=== PATIENT | male | born 1935 | race Caucasian/White ===

== ENCOUNTER 2017-12-12 11:25 | Emergency (ER) | payer MEDICARE, SELFPAY ==
[2017-12-12 11:26] VITALS: BP 112/77; PULSE 125; RESP 18; TEMP 36.6; O2SAT 98; BMI 27.2
[2017-12-12 11:56] LABS: Absolute Lymphocyte Count 0.62 X10^3/ul (0.83-4.51); Absolute Neutrophil Count 15.8 X10^3/uL (2.0-7.7); Basophil# 0.01 X10^3/uL; Basophil% 0.1 % (0-1); Hematocrit 44.1 % (40-54); Hemoglobin 15.9 g/dl (13.0-16.5); Lymphocyte # 0.62 X10^3/ul (4.0); Lymphocyte % 3.6 % (19-41); Mean Corp Hgb Conc 36.1 g/gl (32-36); Mean Corpuscular Volume 88.7 fL (80-94); Mean Platelet Vol. 9.7 fl (6.2-12.0); Monocyte# 0.99 X10^3/uL; Monocyte% 5.7 % (0-10); Neutrophil # 15.79 X10^3/uL (2.7-7.7); Neutrophil % 90.3 % (47-70); Platelet Count 238 K/mm3 (150-450); RBC Distribution Width CV 13.7 % (11.6-14.6); RBC Distribution Width SD 44.1 fl (35.1-43.9); Red Blood Count 4.97 M/mm3 (4.6-6.2); White Blood Count 17.5 K/mm3 (4.4-11.0)
[2017-12-12] MEDS: 0.9% Normal Saline 1,000 ML 1000 ML IV (11:56)
[2017-12-12 11:57] LABS: POSITIVE COUNT NO; POSITIVE DIFFERENTIAL NO; POSITIVE MORPHOLOGY NO
[2017-12-12] MEDS: Ondansetron 4 MG/2 ML Vial IV (11:57)
[2017-12-12 12:07] LABS: Anion Gap 14 (5-15); BUN 23 mg/dL (7-18); Calcium,Total 10.2 mg/dL (8.5-10.1); Chloride 89 mmol/L (98-107); Creatinine, Serum 1.35 mg/dL (0.70-1.30); EST Glomerular Filtration Rate 54 mL/min (>60); Est Glom Filt Rate - Afr Amer 65 mL/min (>60); Estimated Creatinine Clearance 42.81 ml/min; Glucose 301 mg/dL (74-106); Potassium 3.9 mmol/L (3.5-5.1); Sodium Level 130 mmol/L (136-145)
[2017-12-12] MEDS: 0.9% Normal Saline 1,000 ML 999 ML IV (13:24)
--- NOTE | 2017-12-12 13:27 | NURSING ---
NO LW OR POA
[2017-12-12 15:18] LABS: Anion Gap 10 (5-15); BUN 22 mg/dL (7-18); BUN/Creat Ratio 19.6 RATIO (10-20); Calcium,Total 9.5 mg/dL (8.5-10.1); Chloride 95 mmol/L (98-107); Creatinine, Serum 1.12 mg/dL (0.70-1.30); EST Glomerular Filtration Rate 67 mL/min (>60); Est Glom Filt Rate - Afr Amer 80 mL/min (>60); Glucose 212 mg/dL (74-106); Potassium 3.9 mmol/L (3.5-5.1); Sodium Level 134 mmol/L (136-145)
--- NOTE | 2017-12-12 15:39 | ED.VISSUMM ---
- ER Visit Summary Date of Service: 12/12/17 Chief Complaint: Vomiting History of Present Illness: The patient is a 82 M who last evening developed lower abdominal cramping and vomited 11 times during the night. He woke this morning with improvement in his symptoms. He and family are concerned about dehydration. Other at home ate the same meal as patient did not get sick. He has not had fever. He denies any prior abdominal surgeries. Physical Examination: Vital signs are significant for heart rate of 125, otherwise unremarkable. Head neck examination is unremarkable. Heart is tachycardic and regular. Lung sounds are clear. Abdomen is soft and nontender. Hypoactive bowel sounds are noted. He allows deep palpation with no pain. Test Results: CBC reveals a white count of 17.5 with 90% neutrophils. Chemistry studies reveal a sodium of 130 and a chloride of 89. His glucose is 301, BUN 23, creatinine 1.35. Emergency Department Course and Treatment: Patient was given Zofran and 1 L of normal saline. On repeat evaluation heart rate is 112. He feels improved. He is given an additional liter of fluid and following this a repeat BMP is drawn. His sodium is 134 and creatinine 1.12. Blood sugar on second BMP is 212. Treatment Plan: Patient is discharged home with a prescription for Zofran if needed. Disposition: Discharge Impression: Vomiting, improved This note was generated with [employer] dictation software. It may contain incorrect words, spelling, and punctuation that were not noted in review of the chart prior to signing ED Disposition - Plan for ED Patient: Disposition: Home or Assisted Living Chief Complaint: Nausea/Vomiting Instructions: ED Nausea Vomiting Prescriptions: Ondansetron [Zofran Odt] 4 mg PO Q8H PRN PRN #10 tablet PRN Reason: Nausea Referrals: Charles Cutler MD [Primary Care Provider] - 3-5 Days if not improving
--- NOTE | 2017-12-12 15:48 | ED.DEP ---
ED Disposition - Plan for ED Patient: Disposition: Home or Assisted Living Chief Complaint: Nausea/Vomiting Instructions: ED Nausea Vomiting Prescriptions: Ondansetron [Zofran Odt] 4 mg PO Q8H PRN PRN #10 tablet PRN Reason: Nausea Referrals: Charles Cutler MD [Primary Care Provider] - 3-5 Days if not improving
== END 2017-12-12 16:07 | disposition home or self-care (01) ==
PROVIDERS: Emergency Provider Emergency Medicine; Family Provider Internal Medicine; PCP Internal Medicine
DX: R11.2 Nausea with vomiting, unspecified (principal); R10.9 Unspecified abdominal pain; E11.9 Type 2 diabetes mellitus without complications; I10 Essential (primary) hypertension; Z79.84 Long term (current) use of oral hypoglycemic drugs; Z79.899 Other long term (current) drug therapy
CPT/HCPCS: 80048; 85025; 96361; 96374; 99283; J7030; A4216; J2405

== ENCOUNTER 2017-12-15 17:44 | Inpatient (IN) | payer MEDICARE, SELFPAY ==
[2017-12-15 17:45] VITALS: BP 125/75; PULSE 108; RESP 16; TEMP 37.3; O2SAT 94; BMI 26.6
--- NOTE | 2017-12-15 17:56 | CT_ITS ---
STUDY: CT ABDOMEN AND PELVIS WITH CONTRAST REASON FOR EXAM: Male, 82 years old. Right lower quadrant pain, constipation, vomiting and nausea. History of diabetes. RADIATION DOSAGE (If Supplied By Facility): CTDIvol = ( 15.19 ) mGy, DLP = ( 1388.55 ) mGycm TECHNIQUE: Transaxial images were obtained from the dome of the diaphragm to the symphysis pubis with oral contrast. 100 ml of Isovue 300 contrast was administered. Sagittal and coronal images were reconstructed. Individualized dose optimization techniques were used for this CT. COMPARISON: None. FINDINGS: Dependent pleural-based consolidation or atelectasis and posterior right lower lobe calcification. Minimal posterior atelectasis or chronic change of the left lung and calcified granuloma. Normal liver. Large volume gallbladder with multiple calcifications present. There appears to be wall thickening and pericholecystic edema. There are multiple benign calcified granulomata of the spleen. Normal pancreas. Normal bilateral adrenal glands. 4.3 cm cyst of the right kidney. Otherwise normal right kidney without hydronephrosis or stones. 1 shallow cortical scar in the upper pole of the left kidney. Otherwise normal left kidney without hydronephrosis or stones. Normal visualized stomach. Calcified paraesophageal lymph node. Normal small bowel. Diverticulosis of the colon without evidence of acute diverticulitis. There appears to be some generalized thickening of the cephalad wall of the hepatic flexure of the colon juxtapose the gallbladder inflammation. The appendix is visualized and appears normal. There is diffuse atherosclerotic calcification of the abdominal aorta, without a demonstrated aneurysm. Normal inferior vena cava. Normal retroperitoneum. Normal urinary bladder. Minimal fatty umbilical hernia. Small fatty left inguinal hernia. There are diffuse degenerative changes of the visualized lumbar spine. Old mild compression deformities of T12 and L1. CT/Abdomen/Pelvis WITH Contrast IMPRESSION: Cholelithiasis and probably acute cholecystitis. Large volume thick walled gallbladder with pericholecystic edema and numerous calcified stones. Nondistended intrahepatic and common bile duct. Unremarkable pancreas. Thickening of the cephalad wall of the hepatic flexure of the colon juxtapose the gallbladder inflammation and most likely secondary to the gallbladder inflammation with no other acute bowel related findings. Diverticulosis without evidence of acute diverticulitis. A normal appendix is identified. Stigmata of old granulomatous disease. Atherosclerotic changes of the thoracic aorta. Minimal fatty umbilical hernia. Small fatty left inguinal hernia. Posterior atelectatic versus chronic change, right greater than left. Electronically Signed: Marsha Dueñas MD at 20:11 EDT , Service support ,
--- NOTE | 2017-12-15 18:00 | ED.DCSUM_ITS ---
- ER Visit Summary Date of Service: 12/15/17 Chief Complaint: Abdominal pain History of Present Illness: The patient is a 82 M presents with son for continued abdominal pain for 3 days. Was seen 3 days in the ED for abdominal pain and vomiting. His abdominal pain subsided at that time. Vomiting has subsided. As you Zofran only in the mornings yesterday the day before. This morning states has severe tremors and chills. Son states patient's teeth was chattering. Denies cough. Denies urinary symptoms. However states he still feels lower quadrant abdominal pain, initially was left and right, however states left-sided subsided now pain in the right lower quadrant. Worsened with deep breaths. No chest pains. No bowel movement since Wednesday. No abdominal surgeries in the past. Currently denies any nausea symptoms. He has been tolerating oral fluids. Physical Examination: General: Alert and oriented ?3, no acute distress HEENT: Normocephalic, atraumatic. Moist mucosa membranes Neck: supple, nontender. Cardiovascular: Regular tachycardic rate and rhythm, no murmurs Respiratory: Normal breath sounds, symmetric, no distress Abdomen: Soft, mild right lower quadrant tenderness without guarding or rebound , nondistended. Negative Alvarado's. Extremities: Nontender, no edema, pulses intact ?4 Neuro: no focal neurological deficits. Test Results: WBC 7.5. Hemoglobin 13. Creatinine 1.11. ALP 117, ALT 17, AST 13. Total bili 1.1. Sodium 127. Urine negative. CT abdomen pelvis: Cholelithiasis, concerns for cholecystitis with thickened gallbladder wall and edema. Normal appendix. Emergency Department Course and Treatment: Patient presents with increasing chills, and mild right lower quadrant pain on examination. Patient afebrile. White count normal. Appendix normal. However CT did note abnormal gallbladder concerns for cholecystitis. He is nontender the right upper quadrant. Patient was here 3 days ago with vomiting and lower abdominal pain. Labs reviewed from then he had a white count of that time of 17 and a left shift. No reported right upper quadrant pain. However he is diabetic therefore vomiting could have been secondary to gallbladder disease at that time. White count currently normal. However with abnormalities on images, I did speak with covering hospitalist, Dr. Schulz, discuss findings, she agrees with his diabetes, symptomatic 3 days ago could have been from his gallbladder. These are findings today on CT. With a sodium decreasing to 127, she did request admission to medicine for an official ultrasound in the morning and correction of his sodium. I spoke with hospitalist, Dr. Dey who agrees to admit for inpatient management. Urine sodium and creatinine was sent per her request. Constipation will be managed during inpatient stay. Treatment Plan: [] Disposition: Admission Impression: 1. Abdominal pain 2. Hyponatremia 3. Abnormal gallbladder 4. Constipation This note was generated with [employer] dictation software. It may contain incorrect words, spelling, and punctuation that were not noted in review of the chart prior to signing ED Disposition - Plan for ED Patient: Disposition: Acute Care [facility] Chief Complaint: Nausea/Vomiting Diagnosis: Abdominal pain, Abnormal CT scan, gallbladder, Hyponatremia, Constipation Referrals: Charles Cutler MD [Primary Care Provider] -
[2017-12-15] MEDS: 0.9% Normal Saline 1,000 ML 125 ML IV (18:09)
[2017-12-15 18:46] LABS: ALB/GLOB Ratio 0.6 RATIO (0.9-2.4); AST(SGOT) 13 U/L (15-37); Absolute Lymphocyte Count 0.18 X10^3/ul (0.83-4.51); Absolute Neutrophil Count 6.8 X10^3/uL (2.0-7.7); Alanine Aminotransfer ALT/SGPT 17 U/L (16-61); Albumin, Serum 2.8 g/dL (3.2-5.0); Alkaline Phosphatase 117 U/L (45-117); Anion Gap 12 (5-15); BUN 25 mg/dL (7-18); BUN/Creat Ratio 22.5 RATIO (10-20); Chloride 90 mmol/L (98-107); Creatinine, Serum 1.11 mg/dL (0.70-1.30); Differential Indicated SCAN CRITERIA MET; EST Glomerular Filtration Rate 67 mL/min (>60); Eosinophil# 0.02 X10^3/uL; Eosinophils% 0.3 % (0-5); Est Glom Filt Rate - Afr Amer 81 mL/min (>60); Estimated Creatinine Clearance 50.42 ml/min; Globulin 4.4 g/dL (2.2-4.2); Glucose 223 mg/dL (74-106); Hematocrit 37.6 % (40-54); Lymphocyte # 0.18 X10^3/ul (4.0); Lymphocyte % 2.4 % (19-41); Mean Corp Hgb Conc 34.6 g/gl (32-36); Mean Corpuscular Volume 89.7 fL (80-94); Mean Platelet Vol. 9.9 fl (6.2-12.0); Monocyte# 0.43 X10^3/uL; Monocyte% 5.8 % (0-10); Neutrophil # 6.81 X10^3/uL (2.7-7.7); Neutrophil % 91.4 % (47-70); POSITIVE COUNT NO; POSITIVE DIFFERENTIAL YES; POSITIVE MORPHOLOGY NO; Platelet Count 180 K/mm3 (150-450); Potassium 4.3 mmol/L (3.5-5.1); Protein, Total 7.2 g/dL (6.4-8.2); RBC Distribution Width CV 13.6 % (11.6-14.6); RBC Distribution Width SD 44.9 fl (35.1-43.9); Red Blood Count 4.19 M/mm3 (4.6-6.2); Sodium Level 127 mmol/L (136-145); White Blood Count 7.5 K/mm3 (4.4-11.0)
[2017-12-15 18:51] LABS: Bacteria 0 SEEN /hpf (None Seen); Mucous, Urine 0 SEEN /hpf (<or=2+); Squamous Epithelial Cells - UA 0 SEEN /hpf (0-5); White Blood Cells 0 SEEN /hpf (0-5)
[2017-12-15 18:54] LABS: International Normalized Ratio 1.1; Prothrombin Time (Protime)PT. 13.7 SECONDS (11.7-14.9)
[2017-12-15 18:55] LABS: Partial Thromboplast Time 33.7 Seconds (24.1-36.2)
[2017-12-15 19:16] LABS: Color, Urine Yellow (Yellow); Glucose, Dipstick 50 mg/dl (Normal); Urine Clarity Clear (Clear)
[2017-12-15 19:16] LABS: Differential Comment SCANNED; Platelet Estimate ADEQUATE (ADEQ)
[2017-12-15 19:17] LABS: Ketone-Dipstick Negative (Negative); Leukocyte Esterase-Dipstick Negative /ul (Negative); Nitrite-Dipstick Negative (Negative); Occult Blood-Urine 25 /ul (Negative); Protein-Dipstick 30 mg/dl (Negative); Urine Bilirubin Dipstick Negative (Negative); Urine Urobilinogen Normal (Normal)
[2017-12-15 19:18] LABS: Red Blood Cells-Urine 0-5 SEEN /hpf (0-5)
[2017-12-15 20:47] VITALS: BP 108/71; PULSE 85; RESP 17; TEMP 37; O2SAT 94
[2017-12-15 20:53] VITALS: BP 108/72; PULSE 85; RESP 18; TEMP 37; O2SAT 93
--- NOTE | 2017-12-15 20:53 | NURSING ---
GAVE PT A COPY OF [employer] DISCONT. SHEET AND WILL ALSO BE WITH ADMISSION PAPERWORK
[2017-12-15 20:54] LABS: Lipase 204 U/L (73-393)
[2017-12-15 21:53] LABS: Urine Sodium 12 mmol/L (Not Establ.)
[2017-12-15 22:51] VITALS: BMI 26.6
--- NOTE | 2017-12-15 22:51 | HP.PCM_ITS ---
Problem List (1) Cholecystitis, acute with cholelithiasis Status: Acute (2) Abdominal pain Status: Acute Qualifiers: Abdominal location: right upper quadrant Qualified Code(s): R10.11 - Right upper quadrant pain (3) Abnormal CT scan, gallbladder Status: Acute (4) Constipation Status: Chronic (5) Hyponatremia Status: Acute (6) Contact with powered lawnmower as cause of accidental injury Status: Resolved (7) Fracture of second toe, right, closed Status: Resolved (8) Open fracture of right great toe Status: Resolved (9) Subungual hematoma of toe of right foot Status: Resolved Qualifiers: (10) Traumatic right foot injury Status: Resolved (11) Diabetes mellitus type 2 in nonobese Status: Chronic (12) Dehydration Status: Acute (13) Diverticulosis Status: Chronic (14) Colon polyps Status: Chronic History of Present Illness Date of Admission: 12/15/17 Chief Complaint: shaking chills, RUQ abdominal pain, recent severe N/V The patient is a 82 year old M with a PMH of HTN, gout, hypothyroidism, colon polyps, diverticulosis and DM II who presented to the ED at [facility] on 12/15/17 c/o shaking chills, RUQ abdominal pain and poor appetite for the past 5 days. He was also seen in the ED on 12/12/2017 complaining of nausea and vomiting. Prior to the nausea and vomiting he ate pizza and fried zucchini.....he tells me this has not bothered him in the past. He had 12 episodes of N/V and then this resolved but his appetite remained poor and he had RUQ abdominal pain that increased with deep breathing. In the past 4-5 days he has only had a few bowls of soup. He has not had diarrhea. He was treated as possible gastroenteritis initially and sent home with a RX for Zofran ODT. Lalo he tells me that he had RUQ abdominal pain earlier today but it has gotten better. He also had chills and shook him all over and he could not control the shaking today. He denies taking any pain relievers but he does have Tramadol at home. Vital signs at presentation to the emergency room [facility] were temperature 99.1, heart rate 108, blood pressure 125/75, respiratory rate 16 and he was 93-94% saturated on room air. WBC count on 12/12 was 17.5 but today is 7.5. He has 91% neutrophils tonight. Sodium is low at 127 and chloride is 90. THe BUN is 25 with a creatinine of 1.11. A CT scan of the abdomen and pelvis showed dependent pleural-based consolidation or atelectasis in the right lower lobe. There was a large volume gallbladder with multiple calcifications present. The wall appeared to be thickened and there was pericholecystic fluid. The pancreas appeared normal. He is being admitted to the hospital with Acute cholecystitis and has been started on zosyn. BC's will be drawn. Dr. Schulz has been consulted and will add him to the surgical schedule for tomorrow. Past Medical History Past Medical History (Chronic Problems): Chronic Problems Constipation (Chronic) Diverticulosis (Chronic) Colon polyps (Chronic) Diabetes mellitus type 2 in nonobese (Chronic) Allergies cefaclor [From Ceclor] Allergy (Verified 12/15/17 17:48) Hives cephalexin monohydrate [From Keflex] Allergy (Verified 12/15/17 17:48) Hives codeine Allergy (Verified 12/15/17 17:48) Hives Home Medications: Ambulatory Orders Medication Instructions Recorded Allopurinol [Zyloprim] 300 mg PO DAILY 08/27/14 Levothyroxine [Synthroid] 100 mcg PO DAILY 08/27/14 Verapamil HCl [Verapamil ER] 240 mg PO DAILY 08/27/14 Cinnamon Bark [Cinnamon] 1,000 mg PO BID 03/15/17 Lisinopril [Zestril] 5 mg PO DAILY 03/15/17 Metformin HCl 1,000 mg PO BID 03/15/17 Multivit-Min/FA/Lycopen/Lutein 1 each PO DAILY 03/15/17 [Centrum Silver Men Tablet] Amoxicillin/Potassium Clav 1 each PO BID #14 tablet 03/17/17 [Augmentin 875-125 Tablet] traMADol [Ultram] 50 mg PO Q8H PRN PRN #10 tablet 03/17/17 Ondansetron [Zofran Odt] 4 mg PO Q8H PRN PRN #10 tablet 12/12/17 Surgical History: - - Surgery for rectal fistula, 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 Denies: Night Sweats Eyes: Denies: Vision Change HEENT: Denies: Head Aches, Sinus Congestion, Sinus Drainage Cardiovascular: Denies: Chest Pain, Edema, Light Headedness, Palpitations Respiratory: Denies: Cough, Shortness of Breath Gastrointestinal: Reports: Abdominal Pain, Constipation - chronic. Denies: Diarrhea Genitourinary: Denies: Dysuria Musculoskeletal: Denies: Joint Pain, Joint Tenderness Skin: Denies: Rash, Wounds Neurological: Denies: Numbness, Tingling, Focal weakness Psychiatric: Denies: Anxiety, Depression, Homicidal Ideations, Suicidal Ideations Endocrine: Denies: Change in Body Habitus Hematologic/ Lymphatic: Denies: Hx of blood clot VTE Information - Inpt Only VTE Present on Admission: No VTE Mechan Device Prophylaxis: SCD's, Knee High JULIETTE Hose VTE Pharm Prophylaxis ordered?: Yes Patient Problems: Active and Suspected Problems Abdominal pain (Acute) Abnormal CT scan, gallbladder (Acute) Hyponatremia (Acute) Cholecystitis, acute with cholelithiasis (Acute) Dehydration (Acute) - Physical Exam General: Alert, Oriented x3, Cooperative, No apparent distress, Well developed, Well nourished HEENT: Atraumatic, PERRLA, EOMI, Normocephalic Oral: No Gingival or Mucosal Lesions/ Ulcerations, Dry Mucosa Neck: Supple, No JVD, Negative Carotid Bruits, No Nodes, Trachea Midline Lungs: Clear to auscultation, Normal air movement Cardiovascular: Regular rate, Regular Rhythm, Normal S1, Normal S2, Murmur, No rub noted, No Gallop Abdomen: Soft, Non Tender, Non-Distended, Hypoactive Bowel Sounds Extremities: No clubbing, No cyanosis, No edema, No Calf Tenderness, Peripheral Pulses Normal Skin: No rashes, No breakdown Musculoskeletal: No Muscle Wasting Neurological: Cranial nerves II-XII grossly intact, Neuro grossly intact Psych/Mental Status: Normal Affect, Appropriate Vital Signs Temp Pulse Resp BP Pulse Ox 98.6 F 85 18 108/72 93 12/15/17 20:53 12/15/17 20:53 12/15/17 20:53 12/15/17 20:53 12/15/17 20:53 Oxygen Delivery Method Room Air Weight: 180 lb Body Mass Index (BMI) 26.6 Laboratory Tests Past 24 Hrs 12/15/17 12/15/17 12/15/17 18:00 18:00 18:00 WBC 7.5 RBC 4.19 L Hgb 13.0 Hct 37.6 L MCV 89.7 MCH 31.0 MCHC 34.6 RDW 13.6 RDW Differential 44.9 H Plt Count 180 MPV 9.9 Immature Gran % (Auto) 0.100 Neut % (Auto) 91.4 H Lymph % (Auto) 2.4 L [place] % (Auto) 5.8 Eos % (Auto) 0.3 Baso % (Auto) 0.0 Absolute Neuts (auto) 6.8 Absolute Lymphs (auto) 0.18 L Total Counted Not Reportable Differential Comment SCANNED Platelet Estimate ADEQUATE PT 13.7 INR 1.1 APTT 33.7 Sodium 127 L Potassium 4.3 Chloride 90 L Carbon Dioxide 25.0 Anion Gap 12 BUN 25 H Creatinine 1.11 Estim Creat Clear Calc 50.42 Est GFR (MDRD) Af Amer 81 Est GFR (MDRD) Non-Af 67 BUN/Creatinine Ratio 22.5 H Glucose 223 H Calcium 9.0 Total Bilirubin 1.10 H AST 13 L ALT 17 Alkaline Phosphatase 117 Total Protein 7.2 Albumin 2.8 L Globulin 4.4 H Albumin/Globulin Ratio 0.6 L Lipase Urine Color Urine Clarity Urine pH Ur Specific [place] Urine Protein Urine Glucose (UA) Urine Ketones Urine Occult Blood Urine Nitrite Urine Bilirubin Urine Urobilinogen Ur Leukocyte Esterase Urine RBC Urine WBC Ur Squamous Epith Cells Urine Bacteria Urine Mucus Ur Random Sodium Urine Creatinine 12/15/17 12/15/17 12/15/17 18:00 18:45 18:45 WBC RBC Hgb Hct MCV MCH MCHC RDW RDW Differential Plt Count MPV Immature Gran % (Auto) Neut % (Auto) Lymph % (Auto) [place] % (Auto) Eos % (Auto) Baso % (Auto) Absolute Neuts (auto) Absolute Lymphs (auto) Total Counted Differential Comment Platelet Estimate PT INR APTT Sodium Potassium Chloride Carbon Dioxide Anion Gap BUN Creatinine Estim Creat Clear Calc Est GFR (MDRD) Af Amer Est GFR (MDRD) Non-Af BUN/Creatinine Ratio Glucose Calcium Total Bilirubin AST ALT Alkaline Phosphatase Total Protein Albumin Globulin Albumin/Globulin Ratio Lipase 204 Urine Color Yellow Urine Clarity Clear Urine pH 6.0 Ur Specific [place] 1.010 Urine Protein 30 H Urine Glucose (UA) 50 H Urine Ketones Negative Urine Occult Blood 25 H Urine Nitrite Negative Urine Bilirubin Negative Urine Urobilinogen Normal Ur Leukocyte Esterase Negative Urine RBC 0-5 SEEN Urine WBC 0 SEEN Ur Squamous Epith Cells 0 SEEN Urine Bacteria 0 SEEN Urine Mucus 0 SEEN Ur Random Sodium Urine Creatinine 112.00 12/15/17 18:45 WBC RBC Hgb Hct MCV MCH MCHC RDW RDW Differential Plt Count MPV Immature Gran % (Auto) Neut % (Auto) Lymph % (Auto) [place] % (Auto) Eos % (Auto) Baso % (Auto) Absolute Neuts (auto) Absolute Lymphs (auto) Total Counted Differential Comment Platelet Estimate PT INR APTT Sodium Potassium Chloride Carbon Dioxide Anion Gap BUN Creatinine Estim Creat Clear Calc Est GFR (MDRD) Af Amer Est GFR (MDRD) Non-Af BUN/Creatinine Ratio Glucose Calcium Total Bilirubin AST ALT Alkaline Phosphatase Total Protein Albumin Globulin Albumin/Globulin Ratio Lipase Urine Color Urine Clarity Urine pH Ur Specific [place] Urine Protein Urine Glucose (UA) Urine Ketones Urine Occult Blood Urine Nitrite Urine Bilirubin Urine Urobilinogen Ur Leukocyte Esterase Urine RBC Urine WBC Ur Squamous Epith Cells Urine Bacteria Urine Mucus Ur Random Sodium 12 Urine Creatinine Assessment/Plan All Active Problems Abdominal pain (Acute) Abnormal CT scan, gallbladder (Acute) Hyponatremia (Acute) Cholecystitis, acute with cholelithiasis (Acute) Dehydration (Acute) Contact with powered lawnmower as cause of accidental injury (Resolved) Fracture of second toe, right, closed (Resolved) Open fracture of right great toe (Resolved) Subungual hematoma of toe of right foot (Resolved) Traumatic right foot injury (Resolved) Impressions 1. Acute cholecystitis 2. Cholelithiasis with thickened gallbladder wall and pericholecystic fluid 3. Hypertension 4. Hypothyroidism 5. Gout/hyperuricemia 6. History of colon polyps 7. Diverticulosis 8. probable atelectasis RLL 9. Dehydration with prerenal azotemia and hyponatremia-fractional excretion of sodium is 0.09%. 10. DM II Admit to the hospital Zosyn 3.375 GM IV q 8H - allergic to Keflex but, can take PCN NPO for surgery 1 dose Lovenox tonight and then DC SCD's and JULIETTE hose Hydrate with NS Recheck labs in the AM Check a HGBA1C Accucheks with SSI coverage Dr. Schulz on consult Pain medication ordered. IS Code Visit Inpatient E&M: 17638 Init Hosp L2
[2017-12-15 23:14] VITALS: BP 107/70; PULSE 81; RESP 16; TEMP 36.9; O2SAT 95
--- NOTE | 2017-12-15 23:16 | EKG12_ITS ---
Test Reason : PRE OP Blood Pressure : / mmHG Vent. Rate : 077 BPM Atrial Rate : 077 BPM P-R Int : 192 ms QRS Dur : 096 ms QT Int : 368 ms P-R-T Axes : 034 -16 020 degrees QTc Int : 416 ms Normal sinus rhythm Normal ECG Confirmed by MIKI POWERS, JOSE ([id number]), news copy editor LINDA WOOTEN ([id number]) on 12/23/2017 2:19:34 PM Referred By: NATALIYA Confirmed By:JOSE LIVINGSTON MD
[2017-12-15] MEDS: 0.9% Normal Saline 1,000 ML 999 ML IV (23:22)
[2017-12-16] VITALS (13 sets, daily range): BP systolic 103–142; BP diastolic 65–95; PULSE 78–83; RESP 16–20; TEMP 36.3–37.3; O2SAT 92–98; BMI 26.6
[2017-12-16] LABS: Bedside Glucose 251 mg/dL (70-110)
[2017-12-16 00:03] LABS: Magnesium 1.5 mg/dL (1.6-2.6)
[2017-12-16] MEDS: Insulin Lispro 100 UNIT/ML INSULN.PEN SC ×5 (00:11→21:54)
[2017-12-16] MEDS: 0.9% Normal Saline 1,000 ML 125 ML IV ×4 (00:12→16:40)
[2017-12-16 00:15] LABS: Hemoglobin A1c 6.6 % (4.2-6.3)
[2017-12-16] MEDS: Piperacil/Tazobactam 3.375 GM/50 ML ML IV ×3 (05:33→21:53)
[2017-12-16] MEDS: Magnesium Hydroxide 30 ML UDC PO (05:40)
[2017-12-16] MEDS: Levothyroxine 100 MCG Tablet PO (05:41)
[2017-12-16 06:39] LABS: Absolute Lymphocyte Count 0.32 X10^3/ul (0.83-4.51); Absolute Neutrophil Count 6.4 X10^3/uL (2.0-7.7); Eosinophil# 0.04 X10^3/uL; Eosinophils% 0.6 % (0-5); Hematocrit 35.2 % (40-54); Hemoglobin 12.2 g/dl (13.0-16.5); Lymphocyte # 0.32 X10^3/ul (4.0); Lymphocyte % 4.6 % (19-41); Mean Corp Hgb Conc 34.7 g/gl (32-36); Mean Corpuscular Hgb 31.3 pg (27.0-32.0); Mean Corpuscular Volume 90.3 fL (80-94); Monocyte# 0.23 X10^3/uL; Monocyte% 3.3 % (0-10); Neutrophil # 6.35 X10^3/uL (2.7-7.7); Neutrophil % 91.5 % (47-70); Platelet Count 161 K/mm3 (150-450); RBC Distribution Width CV 13.8 % (11.6-14.6); RBC Distribution Width SD 45.3 fl (35.1-43.9); White Blood Count 6.9 K/mm3 (4.4-11.0)
[2017-12-16 06:40] LABS: Differential Indicated SCAN CRITERIA MET; POSITIVE COUNT NO; POSITIVE DIFFERENTIAL YES; POSITIVE MORPHOLOGY NO
--- NOTE | 2017-12-16 06:45 | PCM.CONS.B ---
- Consult Date of Consult: 12/16/17 - Reason for Consult cC: abdominal pain HPI: Rosie Gaona is a 82 year old pleasant WM who presents with abdominal pain, weakness, poor appetite for several days. Found to have acute cholecystitis. He had presented about 3 days ago, had right lower quadrant abdominal pain, had WBC of 17k. Had normal WBC in ED yesterday but has left shift of differential. Also complaint of subjective temperature elevations and chills. Placed on IV antibiotics upon admission. Has elevated bilirubin, but normal AST/ALT, alkphos. Denies obstructive biliary type signs - jaundice, icterus, etc. US reveals multiple gallstones with thickened wall and pericholecystic fluid. 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) 01/18/2015 PAST SURGICAL HISTORY CAPSULE ENDO SMALL BOWEL W EGD 08/29/2014 COLONOSCOP W/ OR W/O [facility] SPEC 07/31/10 COLONOSCOP W/ OR W/O [facility] SPEC 08/29/2014 COLONOSCOP W/ OR W/O [facility] SPEC 01/19/2015 COLONOSCOPY 08/06/2015 COLONOSCOPY 01/23/2016 EGD 08/06/2015 EGD W/O OR W/BRUSH/WASH 08/29/2014 EGD W/O OR W/BRUSH/WASH 01/19/2015 PAST SURGICAL HISTORY OF 03/16/1974 anal fissure repair 11/17/1985 bilateral Taylor-Akira,transantral ethmoidectomies and sphenoidectomies and 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 Caregiver for with late effects of CVA. Independent of ADLs. Drives. Ambulatory. ALLERGIES Ceclor [Cefaclor] Hives Codeine Swelling Keflex [Cephalexin] Hives CURRENT MEDICATIONS verapamil ER (VERELAN) 240 mg 24 hr capsule TAKE 1 CAPSULE BY MOUTH ONCE DAILY. levothyroxine (SYNTHROID) 100 mcg tablet Take 1 tablet by mouth daily before breakfast. allopurinol (ZYLOPRIM) 300 mg tablet Take 1 tablet by mouth once daily. metFORMIN (GLUCOPHAGE) 500 mg tablet Take 2 tablets by mouth twice daily with meals. lisinopril (PRINIVIL) 5 mg tablet Take 1 tablet by mouth once daily. Psyllium Seed-Sucrose (METAMUCIL) powd Take 2 Tablespoonsful by mouth twice daily. calcium carbonate (CALTRATE) 600 mg (1,500 mg) tab Take 600 mg by mouth once daily. magnesium oxide (MAG-OX) 400 mg tablet Take 400 mg by mouth once daily. cholecalciferol (VITAMIN D3) 1,000 unit tab Take 1,000 Units by mouth once daily. Review of Systems Constitutional: has decreased appetite HENT: no acute infections Eyes: Negative. Respiratory: denies coughing up blood Cardiovascular: denies chest pain Gastrointestinal: see HPI, history of vascular malformation causing GI bleed, has chronic intermittent constipation Genitourinary: denies blood in urine. Musculoskeletal: right foot injury from metalworker. Skin: denies nonhealing wounds. Neurological: Negative for dizziness, tremors, weakness and headaches. Endocrine: has diabetes, has hypothyroidism Psychiatric/Behavioral: denies hallucinations. PHYSICAL EXAMINATION: BP 120/72 Pulse 66 Temp 99.1F Resp 20 Ht 5' 9.25 Wt: 186 lb Constitutional: He is oriented to person, place, and time. He appears well-nourished. No distress. HEENT: normocephalic, atraumatic Mouth/Throat: Oropharynx is clear and moist. Eyes: Conjunctivae and EOM are normal. Pupils are equal, round, and reactive to light. Neck: No JVD present. Carotid bruit is not present. Cardiovascular: Regular rhythm, S1 normal and S2 normal. No extrasystoles are present. Exam reveals no gallop. No murmur heard. Pulmonary/Chest: Effort normal and breath sounds normal. Abdominal: Soft but tender to deep palpation in the right upper abdomen no peritoneal signs. Musculoskeletal: Normal range of motion. He exhibits no edema, tenderness or deformity. Lymphadenopathy: He has no cervical adenopathy. Neurological: He is alert and oriented to person, place, and time. He has normal strength. No cranial nerve deficit or sensory deficit. Gait normal. Skin: Mild actinic changes in scalp. Psychiatric: He has a normal mood and affect. His behavior is normal. ASSESSMENT/PLAN: Diagnosis: Cholelithiasis with acute cholecystitis Presently on IV antibiotics. I have discussed the above with the patient. have offered the patient the procedure of laparoscopic cholecystectomy, possible cholangiograms. I have explained the procedure to the patient. I have counseled the patient as to the risks of the procedure, including but not limited to: infection, bleeding, injury to any blood vessels/nerves, scar tissue, injury to any intraabdominal organs, injury to kidney/ureters, injury to bowel/bladder, injury to the common bile duct/biliary tree, bile leakage, intraabdominal abscess/bleeding, hernias at incisional sites, wound infections, possible open procedure, complications of anesthesia, postoperative pneumonia/cardiac problems/blood clots etc. the patient understands. The patient agrees to proceed. I have answered all questions to the patients satisfaction and the patient has no further questions.
--- NOTE | 2017-12-16 06:48 | CON.PCM_ITS ---
- Consult Date of Consult: 12/16/17 - Reason for Consult cC: abdominal pain HPI: Rosie Gaona is a 82 year old pleasant WM who presents with abdominal pain, weakness, poor appetite for several days. Found to have acute cholecystitis. He had presented about 3 days ago, had right lower quadrant abdominal pain, had WBC of 17k. Had normal WBC in ED yesterday but has left shift of differential. Also complaint of subjective temperature elevations and chills. Placed on IV antibiotics upon admission. Has elevated bilirubin, but normal AST/ALT, alkphos. Denies obstructive biliary type signs - jaundice, icterus, etc. US reveals multiple gallstones with thickened wall and pericholecystic fluid. 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 (HCC) PAST SURGICAL HISTORY CAPSULE ENDO SMALL BOWEL W EGD 08/29/2014 COLONOSCOP W/ OR W/O [facility] SPEC 07/31/10 COLONOSCOP W/ OR W/O [facility] SPEC 08/29/2014 [facility] 01/19/2015 COLONOSCOPY 08/06/2015 COLONOSCOPY 01/23/2016 EGD 08/06/2015 EGD W/O OR W/BRUSH/WASH 08/29/2014 EGD W/O OR W/BRUSH/WASH 01/19/2015 PAST SURGICAL HISTORY OF 03/16/1974 anal fissure repair 11/17/1985 bilateral Taylor-Akira,transantral ethmoidectomies and sphenoidectomies and 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 Caregiver for with late effects of CVA. Independent of ADLs. Drives. Ambulatory. ALLERGIES Ceclor [Cefaclor] Hives Codeine Swelling Keflex [Cephalexin] Hives CURRENT MEDICATIONS verapamil ER (VERELAN) 240 mg 24 hr capsule TAKE 1 CAPSULE BY MOUTH ONCE DAILY. levothyroxine (SYNTHROID) 100 mcg tablet Take 1 tablet by mouth daily before breakfast. allopurinol (ZYLOPRIM) 300 mg tablet Take 1 tablet by mouth once daily. metFORMIN (GLUCOPHAGE) 500 mg tablet Take 2 tablets by mouth twice daily with meals. lisinopril (PRINIVIL) 5 mg tablet Take 1 tablet by mouth once daily. Psyllium Seed-Sucrose (METAMUCIL) powd Take 2 Tablespoonsful by mouth twice daily. calcium carbonate (CALTRATE) 600 mg (1,500 mg) tab Take 600 mg by mouth once daily. magnesium oxide (MAG-OX) 400 mg tablet Take 400 mg by mouth once daily. cholecalciferol (VITAMIN D3) 1,000 unit tab Take 1,000 Units by mouth once daily. Review of Systems Constitutional: has decreased appetite HENT: no acute infections Eyes: Negative. Respiratory: denies coughing up blood Cardiovascular: denies chest pain Gastrointestinal: see HPI, history of vascular malformation causing GI bleed, has chronic intermittent constipation Genitourinary: denies blood in urine. Musculoskeletal: right foot injury from tack puller machine. Skin: denies nonhealing wounds. Neurological: Negative for dizziness, tremors, weakness and headaches. Endocrine: has diabetes, has hypothyroidism Psychiatric/Behavioral: denies hallucinations. PHYSICAL EXAMINATION: BP 120/72 Pulse 66 Temp 99.1F Resp 20 Ht 5' 9.25 Wt: 186 lb Constitutional: He is oriented to person, place, and time. He appears well- nourished. No distress. HEENT: normocephalic, atraumatic Mouth/Throat: Oropharynx is clear and moist. Eyes: Conjunctivae and EOM are normal. Pupils are equal, round, and reactive to light. Neck: No JVD present. Carotid bruit is not present. Cardiovascular: Regular rhythm, S1 normal and S2 normal. No extrasystoles are present. Exam reveals no gallop. No murmur heard. Pulmonary/Chest: Effort normal and breath sounds normal. Abdominal: Soft but tender to deep palpation in the right upper abdomen no peritoneal signs. Musculoskeletal: Normal range of motion. He exhibits no edema, tenderness or deformity. Lymphadenopathy: He has no cervical adenopathy. Neurological: He is alert and oriented to person, place, and time. He has normal strength. No cranial nerve deficit or sensory deficit. Gait normal. Skin: Mild actinic changes in scalp. Psychiatric: He has a normal mood and affect. His behavior is normal. ASSESSMENT/PLAN: Diagnosis: Cholelithiasis with acute cholecystitis Presently on IV antibiotics. I have discussed the above with the patient. have offered the patient the procedure of laparoscopic cholecystectomy, possible cholangiograms. I have explained the procedure to the patient. I have counseled the patient as to the risks of the procedure, including but not limited to: infection, bleeding, injury to any blood vessels/nerves, scar tissue, injury to any intraabdominal organs, injury to kidney/ureters, injury to bowel/bladder, injury to the common bile duct/biliary tree, bile leakage, intraabdominal abscess/bleeding, hernias at incisional sites, wound infections, possible open procedure, complications of anesthesia, postoperative pneumonia/ cardiac problems/blood clots etc. the patient understands. The patient agrees to proceed. I have answered all questions to the patient?s satisfaction and the patient has no further questions.
[2017-12-16 06:56] LABS: Bedside Glucose 222 mg/dL (70-110)
[2017-12-16 07:03] LABS: ALB/GLOB Ratio 0.6 RATIO (0.9-2.4); AST(SGOT) 30 U/L (15-37); Alanine Aminotransfer ALT/SGPT 18 U/L (16-61); Albumin, Serum 2.3 g/dL (3.2-5.0); Alkaline Phosphatase 104 U/L (45-117); Anion Gap 10 (5-15); BUN 20 mg/dL (7-18); BUN/Creat Ratio 22.1 RATIO (10-20); Calcium,Total 8.2 mg/dL (8.5-10.1); Chloride 98 mmol/L (98-107); EST Glomerular Filtration Rate 85 mL/min (>60); Est Glom Filt Rate - Afr Amer 103 mL/min (>60); Estimated Creatinine Clearance 62.19 ml/min; Glucose 178 mg/dL (74-106); Potassium 4.8 mmol/L (3.5-5.1); Protein, Total 6.3 g/dL (6.4-8.2); Sodium Level 131 mmol/L (136-145)
--- NOTE | 2017-12-16 08:50 | GALL_PTH ---
PATIENT: MARIA DEL CARMEN DORSEY LOC: MS3 U#:[id number] AGE/SX: 82/M ROOM: MS311 RE12/15/[address]: Dr. Margaret Palumbo MD : [id number] BED: 1 DIS: 12/17/2017 SPEC #: [id number] RECD: 12/16/17 12:26 STATUS: TORI CRUZ #: [id number] JOSSE: 12/16/17 08:[address]: Loulou Schulz DEPT: SURGICAL PATHOLOGY RECD BY: Abdelrahman Gandara ENTERED: 12/16/17 12:51 SP TYPE: ERIC ALVAREZ DR: DO Dr. Margaret Garza MD Dr. Victor Velasquez, MD Tissues: Gallbladder, NOS Procedures: Surgery Specimen Level III HEADER OPERATION: Laparoscopic cholecystectomy with IOC PRE-OP DIAGNOSIS: Cholecystitis TISSUE SUBMITTED: Gallbladder MICROSCOPIC DIAGNOSIS Gallbladder, cholecystectomy: Acute and chronic cholecystitis with denudation of the mucosa and cholelithiasis. AM:lynnette 12/17/17 MICROSCOPIC DESCRIPTION Slides are reviewed. GROSS DESCRIPTION Received is one container labeled with the patient's name and designated gallbladder. The specimen consists of a previously opened gallbladder measuring 7 x 3 x 2 cm. The lumen of the gallbladder contains a few black calculi ranging in size from 0.5 to 0.8 cm in greatest dimension. The gallbladder mucosa is bile-stained and free of mass lesions and measures 0.3 cm in average thickness. No mass lesions are seen. Tray Delivery Aide sections of the gallbladder and the cystic duct are submitted in one cassette. / AM:lynnette 12/16/17 TC:2 CPT: 02540
--- NOTE | 2017-12-16 10:07 | PCM.IMDPSTOP ---
Immediate Post-Op Note Date of Procedure: 12/16/17 Primary Surgeon/Physician: Loulou Schulz taker off braker machine: Jose London Pre-Operative Diagnosis: cholelithiasis, acute cholecystitis Post-Operative Diagnosis: same Surgery/Procedure Performed:: laparoscopic cholecystectomy Description of Surgical Findings:: severe acute on chronic cholecystitis, cholelithiasis Estimated Blood Loss: 30 cc Specimen's removed: gallbladder and contents Type of Anesthesia:: General ASA Class: ASA2 Plus Emergency - Admit VTE Documentation VTE Present on Admission: Yes VTE Mechan Device Prophylaxis: SCD's
--- NOTE | 2017-12-16 10:08 | PCM.DC.GB ---
Discharge Diet: No Restrictions Discharge Activity: Return to Normal Activity, May not drive while taking narcotic pain medications. Lifting Restrictions: no lifting greater than 20 pounds for 2 weeks Call your doctor if your incision/area has: Continuous Slow Oozing, Foul Smelling Discharge Call your doctor if you observe: Fever of 101 or Higher Additional Dressing/Incision Instructions:: Leave dressings in place. May get wet in shower. Do not soak - no tub baths/swimming until further notice Allergies/Adverse Reactions: Allergies cefaclor [From Ceclor] Allergy (Verified 12/15/17 17:48) Hives cephalexin monohydrate [From Keflex] Allergy (Verified 12/15/17 17:48) Hives codeine Allergy (Verified 12/15/17 17:48) Hives Medications to take at Discharge Allopurinol [Zyloprim] 300 mg PO DAILY 08/27/14 Levothyroxine [Synthroid] 100 mcg PO DAILY 08/27/14 Verapamil HCl [Verapamil ER] 240 mg PO DAILY 08/27/14 Cinnamon Bark [Cinnamon] 1,000 mg PO BID 03/15/17 Lisinopril [Zestril] 5 mg PO DAILY 03/15/17 Metformin HCl 1,000 mg PO BID 03/15/17 Multivit-Min/FA/Lycopen/Lutein [Centrum Silver Men Tablet] 1 each PO DAILY 03/15/17 Ondansetron [Zofran Odt] 4 mg PO Q8H PRN PRN #10 tablet 12/12/17 Primary Care Physician: Charles Cutler MD [Primary Care Provider] - Test Results: Please Follow Up With: Loulou Schulz MD - call When: to be seen in 7-10 days, please call for date and time, thank you
--- NOTE | 2017-12-16 10:31 | PCM.PN.HOSP ---
Patient Problems: Active and Suspected Problems Abdominal pain (Acute) Abnormal CT scan, gallbladder (Acute) Hyponatremia (Acute) Cholecystitis, acute with cholelithiasis (Acute) Dehydration (Acute) Subjective: Patient is an 82-year-old male who was admitted via the ED with a complaint of abdominal pain, weakness, poor appetite and vomiting. CT done in the ED was positive for acute cholecystitis. He had previously been seen in the ED about 3 days prior to presentation with the right lower quadrant abdominal pain and had a white cell count of 17,000. Is been managed for acute cholecystitis. He had laparoscopic cystectomy today and is stable. He was seen prior to cholecystectomy. He had no complaints and felt well. He denies any fever, chills, cough, chest pain, SOB, abdominal pain, diarrhea or vomiting. REview of systems is otherwise negative. Vitals/I&O's: Vital Signs Temp Pulse Resp BP Pulse Ox 98.8 F 83 18 115/71 98 12/16/17 08:14 12/16/17 08:14 12/16/17 08:14 12/16/17 08:14 12/16/17 08:14 Oxygen Delivery Method Room Air Weight: 180 lb Body Mass Index (BMI) 26.6 Intake and Output for Last 24 Hours 12/14/17 12/15/17 12/16/17 23:59 23:59 23:59 Intake Total 1702 / 1702 Output Total 750 / 750 Balance 952 / 952 General: Alert, Oriented x3, Cooperative, No apparent distress HEENT: Atraumatic, PERRLA, EOMI, Normocephalic Oral: Moist Mucosa Neck: Supple, No JVD, Negative Carotid Bruits Lungs: Clear to auscultation, Normal air movement, No rhonchi, No wheeze Cardiovascular: Regular rate, Regular Rhythm, Normal S1, Normal S2, No murmurs Abdomen: Bowel Sounds Present, Soft, Non Tender, Non-Distended, No Hepato-splenomegaly Extremities: No edema, Capillary Refill Less than 3 Seconds Skin: No rashes, No breakdown Musculoskeletal: No Tenderness to Palpation of Joints or Extremities Lymphatic: No Cervical, Supraclavicular, or Inguinal Adenopathy Neurological: Cranial nerves II-XII grossly intact Psych/Mental Status: Normal Affect, Appropriate, Alert and oriented to time, place, person, mood and affect Laboratory Results 12/15/17 23:53: POC Glucose 251 H 12/16/17 05:44: WBC 6.9, RBC 3.90 L, Hgb 12.2 L, Hct 35.2 L, MCV 90.3, MCH 31.3, MCHC 34.7, RDW 13.8, RDW Differential 45.3 H, Plt Count 161, MPV 11.0, Immature Gran % (Auto) 0.000, Neut % (Auto) 91.5 H, Lymph % (Auto) 4.6 L, [place] % (Auto) 3.3, Eos % (Auto) 0.6, Baso % (Auto) 0.0, Absolute Neuts (auto) 6.4, Absolute Lymphs (auto) 0.32 L, Total Counted Not Reportable 12/16/17 05:44: Sodium 131 L, Potassium 4.8, Chloride 98, Carbon Dioxide 23.0, Anion Gap 10, BUN 20 H, Creatinine 0.90, Estim Creat Clear Calc 62.19, Est GFR (MDRD) Af Amer 103, Est GFR (MDRD) Non-Af 85, BUN/Creatinine Ratio 22.1 H, Glucose 178 H, Calcium 8.2 L, Total Bilirubin 1.30 H, AST 30, ALT 18, Alkaline Phosphatase 104, Total Protein 6.3 L, Albumin 2.3 L, Globulin 4.0, Albumin/Globulin Ratio 0.6 L 12/16/17 06:37: POC Glucose 222 H Current Medications Allopurinol (Zyloprim) 300 mg PO DAILY [facility] Enoxaparin Sodium (Lovenox) 40 mg SC X1 ONE Stop: 12/16/17 22:16 Sodium Chloride () 1,000 mls @ 125 mls/hr IV .Q8H [facility] Last Admin: 12/16/17 06:38 Dose: 125 mls/hr Piperacillin Sod/Tazobactam Sod (Zosyn) 3.375 gm in 50 mls @ 12.5 mls/hr IV Q8 [facility] Last Admin: 12/16/17 05:33 Dose: 12.5 mls/hr Insulin Human Lispro (Humalog Kwikpen (Bkc)) 0 unit SC ACHS [facility] PRN Reason: Protocol Last Admin: 12/16/17 06:37 Dose: 2 u Levothyroxine Sodium (Synthroid) 100 mcg PO DAILY@0600 [facility] Last Admin: 12/16/17 05:41 Dose: 100 mcg Lisinopril (Zestril) 5 mg PO DAILY [facility] Magnesium Hydroxide (Milk Of Magnesia) 30 ml PO DAILY PRN PRN PRN Reason: Constipation Last Admin: 12/16/17 05:40 Dose: 30 ml Morphine Sulfate () 2 - 4 mg IV Q3H PRN PRN PRN Reason: SEVERE PAIN (6-10/10) Morphine Sulfate () 2 - 4 mg IV Q3H PRN PRN PRN Reason: SEVERE PAIN (6-10/10) Sodium Chloride () 5 - 30 ml IV UD PRN PRN Reason: SALINE FLUSH Tramadol HCl (Ultram) 50 mg PO Q8H PRN PRN PRN Reason: SEVERE PAIN (6-10/10) Medical Necessity - Tobacco Use Smoking Status: Never smoker Tobacco Use: Non-smoker Assessment/Plan All Active Problems Abdominal pain (Acute) Abnormal CT scan, gallbladder (Acute) Hyponatremia (Acute) Cholecystitis, acute with cholelithiasis (Acute) Dehydration (Acute) Contact with powered lawnmower as cause of accidental injury (Resolved) Fracture of second toe, right, closed (Resolved) Open fracture of right great toe (Resolved) Subungual hematoma of toe of right foot (Resolved) Traumatic right foot injury (Resolved) 82-year-old male presenting with a complaint of abdominal pain. He was found to have acute cholecystitis. 1. Acute cholecystitis s/p laparoscopic cholecystectomy- POD 0 As well and has no complaints. Is stable. Review of systems otherwise negative. preliminary blood cultures growing gram negative rods On IV Zosyn 3.375 g q. 8. on IV morphine for pain 2. Hypertension: controlled. on lisinopril 3. Hypothyroidism: stable. On synthroid 4. History of colonic polyps and diverticulosis: stable 5. Hyponatremia: chronic and stable. Will monitor 6. Diabetes mellitus: on ISS. accuchecks ACHS. 7. DVT prophylaxis: lovenox This note was generated with [employer] software. It may contain incorrect words, spelling, and punctuation that were not noted in checking the note before signing. Code Visit Inpatient E&M: 89773 Subs Hosp L2
--- NOTE | 2017-12-16 10:41 | PN_ITS ---
Patient Problems: Active and Suspected Problems Abdominal pain (Acute) Abnormal CT scan, gallbladder (Acute) Hyponatremia (Acute) Cholecystitis, acute with cholelithiasis (Acute) Dehydration (Acute) Subjective: Patient is an 82-year-old male who was admitted via the ED with a complaint of abdominal pain, weakness, poor appetite and vomiting. CT done in the ED was positive for acute cholecystitis. He had previously been seen in the ED about 3 days prior to presentation with the right lower quadrant abdominal pain and had a white cell count of 17,000. Is been managed for acute cholecystitis. He had laparoscopic cystectomy today and is stable. He was seen prior to cholecystectomy. He had no complaints and felt well. He denies any fever, chills, cough, chest pain, SOB, abdominal pain, diarrhea or vomiting. REview of systems is otherwise negative. Vitals/I&O's: Vital Signs Temp Pulse Resp BP Pulse Ox 98.8 F 83 18 115/71 98 12/16/17 08:14 12/16/17 08:14 12/16/17 08:14 12/16/17 08:14 12/16/17 08:14 Oxygen Delivery Method Room Air Weight: 180 lb Body Mass Index (BMI) 26.6 Intake and Output for Last 24 Hours 12/14/17 12/15/17 12/16/17 23:59 23:59 23:59 Intake Total 1702 / 1702 Output Total 750 / 750 Balance 952 / 952 General: Alert, Oriented x3, Cooperative, No apparent distress HEENT: Atraumatic, PERRLA, EOMI, Normocephalic Oral: Moist Mucosa Neck: Supple, No JVD, Negative Carotid Bruits Lungs: Clear to auscultation, Normal air movement, No rhonchi, No wheeze Cardiovascular: Regular rate, Regular Rhythm, Normal S1, Normal S2, No murmurs Abdomen: Bowel Sounds Present, Soft, Non Tender, Non-Distended, No Hepato- splenomegaly Extremities: No edema, Capillary Refill Less than 3 Seconds Skin: No rashes, No breakdown Musculoskeletal: No Tenderness to Palpation of Joints or Extremities Lymphatic: No Cervical, Supraclavicular, or Inguinal Adenopathy Neurological: Cranial nerves II-XII grossly intact Psych/Mental Status: Normal Affect, Appropriate, Alert and oriented to time, place, person, mood and affect Laboratory Results 12/15/17 23:53: POC Glucose 251 H 12/16/17 05:44: WBC 6.9, RBC 3.90 L, Hgb 12.2 L, Hct 35.2 L, MCV 90.3, MCH 31.3 , MCHC 34.7, RDW 13.8, RDW Differential 45.3 H, Plt Count 161, MPV 11.0, Immature Gran % (Auto) 0.000, Neut % (Auto) 91.5 H, Lymph % (Auto) 4.6 L, [place] % (Auto) 3.3, Eos % (Auto) 0.6, Baso % (Auto) 0.0, Absolute Neuts (auto) 6.4, Absolute Lymphs (auto) 0.32 L, Total Counted Not Reportable 12/16/17 05:44: Sodium 131 L, Potassium 4.8, Chloride 98, Carbon Dioxide 23.0, Anion Gap 10, BUN 20 H, Creatinine 0.90, Estim Creat Clear Calc 62.19, Est GFR ( MDRD) Af Amer 103, Est GFR (MDRD) Non-Af 85, BUN/Creatinine Ratio 22.1 H, Glucose 178 H, Calcium 8.2 L, Total Bilirubin 1.30 H, AST 30, ALT 18, Alkaline Phosphatase 104, Total Protein 6.3 L, Albumin 2.3 L, Globulin 4.0, Albumin/ Globulin Ratio 0.6 L 12/16/17 06:37: POC Glucose 222 H Current Medications Allopurinol (Zyloprim) 300 mg PO DAILY [facility] Enoxaparin Sodium (Lovenox) 40 mg SC X1 ONE Stop: 12/16/17 22:16 Sodium Chloride () 1,000 mls @ 125 mls/hr IV .Q8H [facility] Last Admin: 12/16/17 06:38 Dose: 125 mls/hr Piperacillin Sod/Tazobactam Sod (Zosyn) 3.375 gm in 50 mls @ 12.5 mls/hr IV Q8 [facility] Last Admin: 12/16/17 05:33 Dose: 12.5 mls/hr Insulin Human Lispro (Humalog Kwikpen (Bkc)) 0 unit SC ACHS [facility] PRN Reason: Protocol Last Admin: 12/16/17 06:37 Dose: 2 u Levothyroxine Sodium (Synthroid) 100 mcg PO DAILY@0600 [facility] Last Admin: 12/16/17 05:41 Dose: 100 mcg Lisinopril (Zestril) 5 mg PO DAILY [facility] Magnesium Hydroxide (Milk Of Magnesia) 30 ml PO DAILY PRN PRN PRN Reason: Constipation Last Admin: 12/16/17 05:40 Dose: 30 ml Morphine Sulfate () 2 - 4 mg IV Q3H PRN PRN PRN Reason: SEVERE PAIN (6-10/10) Morphine Sulfate () 2 - 4 mg IV Q3H PRN PRN PRN Reason: SEVERE PAIN (6-10/10) Sodium Chloride () 5 - 30 ml IV UD PRN PRN Reason: SALINE FLUSH Tramadol HCl (Ultram) 50 mg PO Q8H PRN PRN PRN Reason: SEVERE PAIN (6-10/10) Medical Necessity - Tobacco Use Smoking Status: Never smoker Tobacco Use: Non-smoker Assessment/Plan All Active Problems Abdominal pain (Acute) Abnormal CT scan, gallbladder (Acute) Hyponatremia (Acute) Cholecystitis, acute with cholelithiasis (Acute) Dehydration (Acute) Contact with powered lawnmower as cause of accidental injury (Resolved) Fracture of second toe, right, closed (Resolved) Open fracture of right great toe (Resolved) Subungual hematoma of toe of right foot (Resolved) Traumatic right foot injury (Resolved) 82-year-old male presenting with a complaint of abdominal pain. He was found to have acute cholecystitis. 1. Acute cholecystitis s/p laparoscopic cholecystectomy- POD 0 * As well and has no complaints. * Is stable. Review of systems otherwise negative. * preliminary blood cultures growing gram negative rods * On IV Zosyn 3.375 g q. 8. * * on IV morphine for pain * 2. Hypertension: controlled. on lisinopril 3. Hypothyroidism: stable. On synthroid 4. History of colonic polyps and diverticulosis: stable 5. Hyponatremia: chronic and stable. Will monitor 6. Diabetes mellitus: on ISS. accuchecks ACHS. 7. DVT prophylaxis: lovenox This note was generated with [employer] software. It may contain incorrect words, spelling, and punctuation that were not noted in checking the note before signing. Code Visit Inpatient E&M: 64016 Subs Hosp L2
--- NOTE | 2017-12-16 11:30 | CASEMGMT ---
RN CM attempted to complete CM assessment at this time. Patient is currently in OR at this time. RN CM will attempt to complete assessment at a later time.
--- NOTE | 2017-12-16 11:42 | PCM.OPRPT ---
Report of Operation Date of Procedure: 12/16/17 Pre-Operative Diagnosis: cholelithiasis, acute cholecystitis Post-Operative Diagnosis: same Surgery/Procedure Performed:: laparoscopic cholecystectomy Description of Surgical Findings:: severe acute on chronic cholecystitis, cholelithiasis senior materials analyst: Jose London Type of Anesthesia:: General Anesthesiologist: Avel Calixto Specimen's removed: gallbladder and contents Drains: 15Fr round drain in right upper quadrant Estimated Blood Loss (mL): 30 cc Fluids Replaced: 1800 ml NS Description of Procedure: After informed consent was given, the patient was brought to the Operating Room and placed in the supine position. Appropriate time out protocol was followed. The patient was then placed under general endotracheal anesthesia. The abdomen was then prepped with a sterile surgical skin preparation and sterile surgical drapes were placed. An area superior to the umbilical dimple was grasped with penetrating clamps and the skin and subcutaneous tissues were infiltrated with local anesthetic. A skin incision was then made with a 15 blade scalpel. The anterior abdominal wall was elevated and a Veress needle was carefully inserted into the intraabdominal cavity. It was checked to be in the proper position with a normal saline drop test. A CO2 pneumoperitoneum was then created. Once this was achieved, then the Veress needle was removed and an 11mm trocar was placed in its stead. A 10mm laparoscope was then inserted into the trocar and careful attention was directed to the intraabdominal contents. There was no evidence of injury to any intraabdominal organs from insertion of the Veress needle or the trocar. Under direct visualization, a 5mm subxiphoid trocar and two lateral 5mm right subcostal trocars were placed. The skin and subcutaneous tissues at these sites were infiltrated with 0.25% marcaine with epinephrine prior to placement of these trocars. Attention was then directed to the right upper quadrant of the abdomen. There was severe acute on chronic cholecystitis with gangrene noted of gallbladder wall. The gallbladder was partially walled off with dense inflamed omentum. This required carefully dissection to separate the gallbladder wall from the omentum and took some time. There was inflammatory fluid. Suction/irrigation was used to assist with blunt dissection. Graspers were placed in the lateral trocars to grasp the distal aspect of the gallbladder and direct it cephalad and to grasp the gallbladder at Hartmans pouch and direct it laterally. Dissection then began on the proximal gallbladder continuing down to the area of the triangle of Calot to bluntly dissect out the cystic duct. The neck of the gallbladder was identified and blunt dissection continued to dissect out a segment of the cystic duct. This took some time due to the amount of inflammation. A clip was then placed on the neck of the gallbladder. Two clips were placed proximal to the ductotomy and the cystic duct was then transected. The cystic artery was visualized and bluntly isolated and then two clips were placed proximally and one clip distally and then it was transected between the proximal and distal clips. The gallbladder was then from the liver bed using electrocautery. This took some time due to the inflammation. Because the wall of the gallbladder was gangrenous and friable, there was inevitable opening of the gallbladder with emanation of stones and fluid. Suctioning and irrigation was done to ensure all this was cleared out of the abdominal cavity. The gallbladder, once freed from the liver bed, was then placed in an endobag and thus able to be brought out of the umbilical port. It was then forwarded to pathology for analysis. The liver bed was carefully examined. There was no evidence of bile leakage or bleeding. There was inflammatory oozing. This was controlled with Chacho applied to the liver bed. The cystic duct stump and cystic artery stump had their clips intact and there was no evidence of bile leakage or bleeding. The area was vigorously irrigated until clear fluid and all irrigant was aspirated out. A 15FR round drain was placed in the right upper quadrant, gallbladder fossa area. The remainder of the abdomen was grossly normal. The CO2 was released and all trocars removed intact. The periumbilical fascia was approximated with a [id number] 0 vicryl suture. All skin incision were closed with 4-0 monocryl in a subdermal fashion. Cavilol and Steristrips were used to reinforce the skin closure. Sterile dressings were applied to all wounds. The patient was extubated and brought to the Recovery Room in stable condition. - Complications none noted - Admit VTE Documentation VTE Present on Admission: Yes VTE Mechan Device Prophylaxis: SCD's
[2017-12-16] MEDS: Bupivacaine 0.25% 30 ML Vial (11:44)
[2017-12-16 12:40] LABS: Bedside Glucose 235 mg/dL (70-110)
[2017-12-16 16:06] LABS: Bedside Glucose 183 mg/dL (70-110)
[2017-12-16] MEDS: Lisinopril 5 MG Tablet PO (16:42)
[2017-12-16] MEDS: Allopurinol 300 MG Tablet PO (16:42)
[2017-12-16] MEDS: Enoxaparin 40 MG/0.4 ML Syringe SC (21:54)
[2017-12-16 21:56] LABS: Bedside Glucose 239 mg/dL (70-110)
[2017-12-17] MEDS: 0.9% Normal Saline 1,000 ML 125 ML IV ×2 (00:09→09:09)
[2017-12-17 02:13] VITALS: BP 115/72; PULSE 88; RESP 16; TEMP 37.8; O2SAT 92
--- NOTE | 2017-12-17 03:15 | PCM.HP.STD ---
Problem List (1) Cholecystitis, acute with cholelithiasis Status: Acute (2) Abdominal pain Status: Acute Qualifiers: Abdominal location: right upper quadrant Qualified Code(s): R10.11 - Right upper quadrant pain (3) Abnormal CT scan, gallbladder Status: Acute (4) Constipation Status: Chronic (5) Hyponatremia Status: Acute (6) Diabetes mellitus type 2 in nonobese Status: Chronic (7) Dehydration Status: Acute (8) Diverticulosis Status: Chronic (9) Colon polyps Status: Chronic History of Present Illness The patient is a 82 year old M [] Past Medical History Past Medical History (Chronic Problems): Chronic Problems Constipation (Chronic) Diverticulosis (Chronic) Colon polyps (Chronic) Diabetes mellitus type 2 in nonobese (Chronic) Allergies cefaclor [From Ceclor] Allergy (Verified 12/15/17 17:48) Hives cephalexin monohydrate [From Keflex] Allergy (Verified 12/15/17 17:48) Hives codeine Allergy (Verified 12/15/17 17:48) Hives Home Medications: Ambulatory Orders Medication Instructions Recorded Allopurinol [Zyloprim] 300 mg PO DAILY 08/27/14 Levothyroxine [Synthroid] 100 mcg PO DAILY 08/27/14 Verapamil HCl [Verapamil ER] 240 mg PO DAILY 08/27/14 Cinnamon Bark [Cinnamon] 1,000 mg PO BID 03/15/17 Lisinopril [Zestril] 5 mg PO DAILY 03/15/17 Metformin HCl 1,000 mg PO BID 03/15/17 Multivit-Min/FA/Lycopen/Lutein 1 each PO DAILY 03/15/17 [Centrum Silver Men Tablet] Ondansetron [Zofran Odt] 4 mg PO Q8H PRN PRN #10 tablet 12/12/17 Surgical History: - - Surgery for rectal fistula, 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, amputation of the Right great toe injured in an encounter with his jose damico Psychiatric History: No pertinent psych hx Lives: Spouse/ Significant Other Smoking Status: Never smoker Tobacco Use: Non-smoker Alcohol: None Drugs: None - *Family History Paternal History Items: Diabetes Maternal History Items: Diabetes, Unknown, - - headaches Patient Problems: Active and Suspected Problems Abdominal pain (Acute) Abnormal CT scan, gallbladder (Acute) Hyponatremia (Acute) Cholecystitis, acute with cholelithiasis (Acute) Dehydration (Acute) - Physical Exam Vital Signs Temp Pulse Resp BP Pulse Ox 100.0 F H 88 16 115/72 92 12/17/17 02:13 12/17/17 02:13 12/17/17 02:13 12/17/17 02:13 12/17/17 02:13 Oxygen Flow Rate (L/min) 2 Oxygen Delivery Method Room Air Weight: 180 lb Body Mass Index (BMI) 26.6 Finger Stick Blood Glucose 235 Intake and Output for Last 24 Hours 12/15/17 12/16/17 12/17/17 23:59 23:59 23:59 Intake Total 5352 / 5352 2012 Output Total 880 / 880 970 / 970 Balance 4472 / 4472 1043 / 1043 Microbiology Past 72 Hours 12/15/17 23:50 Blood Culture - Preliminary Blood Culture (Wb) - Right Hand Laboratory Tests Past 24 Hrs 12/16/17 12/16/17 05:44 05:44 WBC 6.9 RBC 3.90 L Hgb 12.2 L Hct 35.2 L MCV 90.3 MCH 31.3 MCHC 34.7 RDW 13.8 RDW Differential 45.3 H Plt Count 161 MPV 11.0 Immature Gran % (Auto) 0.000 Neut % (Auto) 91.5 H Lymph % (Auto) 4.6 L [place] % (Auto) 3.3 Eos % (Auto) 0.6 Baso % (Auto) 0.0 Absolute Neuts (auto) 6.4 Absolute Lymphs (auto) 0.32 L Total Counted Not Reportable Sodium 131 L Potassium 4.8 Chloride 98 Carbon Dioxide 23.0 Anion Gap 10 BUN 20 H Creatinine 0.90 Estim Creat Clear Calc 62.19 Est GFR (MDRD) Af Amer 103 Est GFR (MDRD) Non-Af 85 BUN/Creatinine Ratio 22.1 H Glucose 178 H Calcium 8.2 L Total Bilirubin 1.30 H AST 30 ALT 18 Alkaline Phosphatase 104 Total Protein 6.3 L Albumin 2.3 L Globulin 4.0 Albumin/Globulin Ratio 0.6 L POC Glucose 12/16/17 12/16/17 12/16/17 21:42 16:00 12:38 POC Glucose 239 H 183 H 235 H 12/16/17 06:37 POC Glucose 222 H Assessment/Plan All Active Problems Abdominal pain (Acute) Abnormal CT scan, gallbladder (Acute) Hyponatremia (Acute) Cholecystitis, acute with cholelithiasis (Acute) Dehydration (Acute) Contact with powered lawnmower as cause of accidental injury (Resolved) Fracture of second toe, right, closed (Resolved) Open fracture of right great toe (Resolved) Subungual hematoma of toe of right foot (Resolved) Traumatic right foot injury (Resolved)
[2017-12-17] MEDS: Insulin Lispro 100 UNIT/ML INSULN.PEN SC ×2 (06:41→11:28)
[2017-12-17] MEDS: Levothyroxine 100 MCG Tablet PO (06:41)
[2017-12-17] MEDS: Piperacil/Tazobactam 3.375 GM/50 ML ML IV (06:41)
[2017-12-17 06:51] LABS: Bedside Glucose 196 mg/dL (70-110)
[2017-12-17 07:44] LABS: Absolute Lymphocyte Count 0.51 X10^3/ul (0.83-4.51); Absolute Neutrophil Count 5.2 X10^3/uL (2.0-7.7); Eosinophil# 0.11 X10^3/uL; Eosinophils% 1.6 % (0-5); Hematocrit 31.5 % (40-54); Hemoglobin 11.3 g/dl (13.0-16.5); Lymphocyte # 0.51 X10^3/ul (4.0); Lymphocyte % 7.6 % (19-41); Mean Corp Hgb Conc 35.9 g/gl (32-36); Mean Corpuscular Hgb 31.6 pg (27.0-32.0); Mean Platelet Vol. 9.7 fl (6.2-12.0); Monocyte# 0.83 X10^3/uL; Monocyte% 12.4 % (0-10); Neutrophil # 5.22 X10^3/uL (2.7-7.7); Platelet Count 190 K/mm3 (150-450); RBC Distribution Width CV 13.7 % (11.6-14.6); RBC Distribution Width SD 42.5 fl (35.1-43.9); Red Blood Count 3.58 M/mm3 (4.6-6.2); White Blood Count 6.7 K/mm3 (4.4-11.0)
[2017-12-17 07:45] LABS: Differential Indicated SCAN CRITERIA MET; POSITIVE COUNT NO; POSITIVE DIFFERENTIAL YES; POSITIVE MORPHOLOGY NO
--- NOTE | 2017-12-17 07:50 | PN.SURG_ITS ---
Subjective: Patient denies any pain Only complaint is of extreme fatigue Patient's complaint also of constipation - Physical Exam General: Alert, Oriented x3 Vital Signs Temp Pulse Resp BP Pulse Ox 100.0 F H 88 16 115/72 92 12/17/17 02:13 12/17/17 02:13 12/17/17 02:13 12/17/17 02:13 12/17/17 02:13 Oxygen Flow Rate (L/min) 2 Oxygen Delivery Method Room Air Weight: 81.647 kg Body Mass Index (BMI) 26.6 Finger Stick Blood Glucose 235 Intake and Output for Last 24 Hours 12/15/17 12/16/17 12/17/17 23:59 23:59 23:59 Intake Total 5352 / 5352 3217 / 3217 Output Total 880 / 880 1320 / 1320 Balance 4472 / 4472 1897 / 1897 Microbiology Past 72 Hours 12/15/17 23:50 Blood Culture - Preliminary Blood Culture (Wb) - Right Hand Laboratory Tests Past 24 Hrs 12/17/17 12/17/17 07:20 07:20 WBC 6.7 RBC 3.58 L Hgb 11.3 L Hct 31.5 L MCV 88.0 MCH 31.6 MCHC 35.9 RDW 13.7 RDW Differential 42.5 Plt Count 190 MPV 9.7 Immature Gran % (Auto) 0.400 Neut % (Auto) 78.0 H Lymph % (Auto) 7.6 L [place] % (Auto) 12.4 H Eos % (Auto) 1.6 Baso % (Auto) 0.0 Absolute Neuts (auto) 5.2 Absolute Lymphs (auto) 0.51 L Total Counted Pending Sodium Pending Potassium Pending Chloride Pending Carbon Dioxide Pending Anion Gap Pending BUN Pending Creatinine Pending Est GFR (MDRD) Af Amer Pending Est GFR (MDRD) Non-Af Pending BUN/Creatinine Ratio Pending Glucose Pending Calcium Pending POC Glucose 12/17/17 12/16/17 12/16/17 06:39 21:42 16:00 POC Glucose 196 H 239 H 183 H 12/16/17 12:38 POC Glucose 235 H Medical Necessity - Tobacco Use Smoking Status: Never smoker Tobacco Use: Non-smoker Assessment/Plan All Active Problems Abdominal pain (Acute) Abnormal CT scan, gallbladder (Acute) Hyponatremia (Acute) Cholecystitis, acute with cholelithiasis (Acute) Dehydration (Acute) Contact with powered lawnmower as cause of accidental injury (Resolved) Fracture of second toe, right, closed (Resolved) Open fracture of right great toe (Resolved) Subungual hematoma of toe of right foot (Resolved) Traumatic right foot injury (Resolved) POD#1 s/p laparoscopic cholecystectomy Plan: will trial dulcolax suppository for constipation continue present therapy as per hospitalists
[2017-12-17 07:57] LABS: Anion Gap 9 (5-15); BUN 12 mg/dL (7-18); Calcium,Total 7.2 mg/dL (8.5-10.1); Chloride 103 mmol/L (98-107); Creatinine, Serum 0.92 mg/dL (0.70-1.30); EST Glomerular Filtration Rate 83 mL/min (>60); Est Glom Filt Rate - Afr Amer 101 mL/min (>60); Estimated Creatinine Clearance 60.84 ml/min; Glucose 174 mg/dL (74-106); Sodium Level 134 mmol/L (136-145)
[2017-12-17 08:06] LABS: Hypochromasia 1+
[2017-12-17] MEDS: Lisinopril 5 MG Tablet PO (09:10)
[2017-12-17] MEDS: Allopurinol 300 MG Tablet PO (09:10)
[2017-12-17] MEDS: Bisacodyl 10 MG Suppository RECTAL (09:12)
[2017-12-17 09:15] VITALS: BP 119/69; PULSE 94; RESP 18; TEMP 36.7; O2SAT 96
--- NOTE | 2017-12-17 09:57 | PCM.PN.HOSP ---
Subjective: Patient is an 82-year-old male who was admitted via the ED with a complaint of abdominal pain, weakness, poor appetite and vomiting. CT done in the ED was positive for acute cholecystitis. He had previously been seen in the ED about 3 days prior to presentation with the right lower quadrant abdominal pain and had a white cell count of 17,000. Is been managed for acute cholecystitis. He had Laparoscopic cholecystectomy and today's postop day 1. Patient seen and examined today. Complains of tiredness because was unable to sleep through the night. He also complains of constipation. Denies any fever or chills, any cough or chest pain, abdominal pain, any diarrhea vomiting. Review of systems otherwise negative. Vitals/I&O's: Vital Signs Temp Pulse Resp BP Pulse Ox 98.0 F 94 18 119/69 96 12/17/17 09:15 12/17/17 09:15 12/17/17 09:15 12/17/17 09:15 12/17/17 09:15 Oxygen Flow Rate (L/min) 2 Oxygen Delivery Method Room Air Weight: 180 lb Body Mass Index (BMI) 26.6 Finger Stick Blood Glucose 235 Intake and Output for Last 24 Hours 12/15/17 12/16/17 12/17/17 23:59 23:59 23:59 Intake Total 5352 / 5352 3217 / 3217 Output Total 880 / 880 1400 / 1400 Balance 4472 / 4472 1817 / 1817 General: Alert, Oriented x3, Cooperative, No apparent distress HEENT: Atraumatic, PERRLA, EOMI, Normocephalic Oral: Moist Mucosa Neck: Supple, No JVD, Negative Carotid Bruits Lungs: Clear to auscultation, Normal air movement, No rhonchi, No wheeze, No rales Cardiovascular: Regular rate, Regular Rhythm, Normal S1, Normal S2, No murmurs Abdomen: Bowel Sounds Present, Soft, Non Tender, Non-Distended, No Hepato-splenomegaly, - - surgical site is clean and dry; minimal tenderness. Drain has ~ 50cc of serosanguinous fluid Extremities: No clubbing, No cyanosis, No edema, Capillary Refill Less than 3 Seconds Skin: No rashes, No breakdown Musculoskeletal: No Tenderness to Palpation of Joints or Extremities Lymphatic: No Cervical, Supraclavicular, or Inguinal Adenopathy Neurological: Cranial nerves II-XII grossly intact Psych/Mental Status: Normal Affect, Appropriate, Alert and oriented to time, place, person, mood and affect Microbiology Past 72 Hours 12/15/17 23:50 Blood Culture (Wb) - Right Hand Blood Culture - Preliminary Laboratory Results 12/16/17 12:38: POC Glucose 235 H 12/16/17 16:00: POC Glucose 183 H 12/16/17 21:42: POC Glucose 239 H 12/17/17 06:39: POC Glucose 196 H 12/17/17 07:20: WBC 6.7, RBC 3.58 L, Hgb 11.3 L, Hct 31.5 L, MCV 88.0, MCH 31.6, MCHC 35.9, RDW 13.7, RDW Differential 42.5, Plt Count 190, MPV 9.7, Immature Gran % (Auto) 0.400, Neut % (Auto) 78.0 H, Lymph % (Auto) 7.6 L, [place] % (Auto) 12.4 H, Eos % (Auto) 1.6, Baso % (Auto) 0.0, Absolute Neuts (auto) 5.2, Absolute Lymphs (auto) 0.51 L, Total Counted Not Reportable, Hypochromasia 1+ 12/17/17 07:20: Sodium 134 L, Potassium 4.0, Chloride 103, Carbon Dioxide 22.0, Anion Gap 9, BUN 12, Creatinine 0.92, Estim Creat Clear Calc 60.84, Est GFR (MDRD) Af Amer 101, Est GFR (MDRD) Non-Af 83, BUN/Creatinine Ratio 13.0, Glucose 174 H, Calcium 7.2 L Current Medications Allopurinol (Zyloprim) 300 mg PO DAILY [facility] Last Admin: 12/17/17 09:10 Dose: 300 mg Sodium Chloride () 1,000 mls @ 125 mls/hr IV .Q8H [facility] Last Admin: 12/17/17 09:09 Dose: 125 mls/hr Piperacillin Sod/Tazobactam Sod (Zosyn) 3.375 gm in 50 mls @ 12.5 mls/hr IV Q8 [facility] Last Admin: 12/17/17 06:41 Dose: 12.5 mls/hr Insulin Human Lispro (Humalog Kwikpen (Bkc)) 0 unit SC ACHS [facility] PRN Reason: Protocol Last Admin: 12/17/17 06:41 Dose: 1 u Levothyroxine Sodium (Synthroid) 100 mcg PO DAILY@0600 [facility] Last Admin: 12/17/17 06:41 Dose: 100 mcg Lisinopril (Zestril) 5 mg PO DAILY [facility] Last Admin: 12/17/17 09:10 Dose: 5 mg Magnesium Hydroxide (Milk Of Magnesia) 30 ml PO DAILY PRN PRN PRN Reason: Constipation Last Admin: 12/16/17 05:40 Dose: 30 ml Morphine Sulfate () 2 - 4 mg IV Q3H PRN PRN PRN Reason: SEVERE PAIN (6-10/10) Morphine Sulfate () 2 - 4 mg IV Q3H PRN PRN PRN Reason: SEVERE PAIN (6-10/10) Sodium Chloride () 5 - 30 ml IV UD PRN PRN Reason: SALINE FLUSH Tramadol HCl (Ultram) 50 mg PO Q8H PRN PRN PRN Reason: SEVERE PAIN (6-10/10) Medical Necessity - Tobacco Use Smoking Status: Never smoker Tobacco Use: Non-smoker Assessment/Plan All Active Problems Abdominal pain (Acute) Abnormal CT scan, gallbladder (Acute) Hyponatremia (Acute) Cholecystitis, acute with cholelithiasis (Acute) Dehydration (Acute) Contact with powered lawnmower as cause of accidental injury (Resolved) Fracture of second toe, right, closed (Resolved) Open fracture of right great toe (Resolved) Subungual hematoma of toe of right foot (Resolved) Traumatic right foot injury (Resolved) 82-year-old male presenting with a complaint of abdominal pain. He was found to have acute cholecystitis. 1. Acute cholecystitis s/p laparoscopic cholecystectomy- POD 1 Stable. White cell count does remain down. Blood cultures grew gram-negative rods. Speciation is pending. IV Zosyn 3.375 g q. 8. As well and has no complaints. Is stable. Review of systems otherwise negative. preliminary blood cultures growing gram negative rods On IV Zosyn 3.375 g q. 8. on IV morphine for pain Discussed with Dr Schulz. Will Dc home on PO metronidazole and PO flagyl for a 10 day course. To follow up with Dr Schulz next Wednesday12/21/27 @ 3:30pm. drain to be left in place. Only sponge bathing, and keep dressing clean and dry. 2. Hypertension: controlled. on lisinopril 3. Hypothyroidism: stable. On synthroid 4. History of colonic polyps and diverticulosis: stable 5. Hyponatremia: resolving. Chronic. Na today is 134. WIll monitor 6. Diabetes mellitus: on ISS. accuchecks ACHS. 7. Constipation: will give dulcolax suppository 8. DVT prophylaxis: lovenox Disposition: dc home today. This note was generated with [employer] dictation software. It may contain incorrect words, spelling, and punctuation that were not noted in checking the note before signing. Code Visit Inpatient E&M: 60787 Subs Hosp L2
--- NOTE | 2017-12-17 10:05 | PN_ITS ---
Subjective: Patient is an 82-year-old male who was admitted via the ED with a complaint of abdominal pain, weakness, poor appetite and vomiting. CT done in the ED was positive for acute cholecystitis. He had previously been seen in the ED about 3 days prior to presentation with the right lower quadrant abdominal pain and had a white cell count of 17,000. Is been managed for acute cholecystitis. He had Laparoscopic cholecystectomy and today's postop day 1. Patient seen and examined today. Complains of tiredness because was unable to sleep through the night. He also complains of constipation. Denies any fever or chills, any cough or chest pain, abdominal pain, any diarrhea vomiting. Review of systems otherwise negative. Vitals/I&O's: Vital Signs Temp Pulse Resp BP Pulse Ox 98.0 F 94 18 119/69 96 12/17/17 09:15 12/17/17 09:15 12/17/17 09:15 12/17/17 09:15 12/17/17 09:15 Oxygen Flow Rate (L/min) 2 Oxygen Delivery Method Room Air Weight: 180 lb Body Mass Index (BMI) 26.6 Finger Stick Blood Glucose 235 Intake and Output for Last 24 Hours 12/15/17 12/16/17 12/17/17 23:59 23:59 23:59 Intake Total 5352 / 5352 3217 / 3217 Output Total 880 / 880 1400 / 1400 Balance 4472 / 4472 1817 / 1817 General: Alert, Oriented x3, Cooperative, No apparent distress HEENT: Atraumatic, PERRLA, EOMI, Normocephalic Oral: Moist Mucosa Neck: Supple, No JVD, Negative Carotid Bruits Lungs: Clear to auscultation, Normal air movement, No rhonchi, No wheeze, No rales Cardiovascular: Regular rate, Regular Rhythm, Normal S1, Normal S2, No murmurs Abdomen: Bowel Sounds Present, Soft, Non Tender, Non-Distended, No Hepato- splenomegaly, - - surgical site is clean and dry; minimal tenderness. Drain has ~ 50cc of serosanguinous fluid Extremities: No clubbing, No cyanosis, No edema, Capillary Refill Less than 3 Seconds Skin: No rashes, No breakdown Musculoskeletal: No Tenderness to Palpation of Joints or Extremities Lymphatic: No Cervical, Supraclavicular, or Inguinal Adenopathy Neurological: Cranial nerves II-XII grossly intact Psych/Mental Status: Normal Affect, Appropriate, Alert and oriented to time, place, person, mood and affect Microbiology Past 72 Hours 12/15/17 23:50 Blood Culture (Wb) - Right Hand Blood Culture - Preliminary Laboratory Results 12/16/17 12:38: POC Glucose 235 H 12/16/17 16:00: POC Glucose 183 H 12/16/17 21:42: POC Glucose 239 H 12/17/17 06:39: POC Glucose 196 H 12/17/17 07:20: WBC 6.7, RBC 3.58 L, Hgb 11.3 L, Hct 31.5 L, MCV 88.0, MCH 31.6 , MCHC 35.9, RDW 13.7, RDW Differential 42.5, Plt Count 190, MPV 9.7, Immature Gran % (Auto) 0.400, Neut % (Auto) 78.0 H, Lymph % (Auto) 7.6 L, [place] % (Auto) 12.4 H, Eos % (Auto) 1.6, Baso % (Auto) 0.0, Absolute Neuts (auto) 5.2, Absolute Lymphs (auto) 0.51 L, Total Counted Not Reportable, Hypochromasia 1+ 12/17/17 07:20: Sodium 134 L, Potassium 4.0, Chloride 103, Carbon Dioxide 22.0, Anion Gap 9, BUN 12, Creatinine 0.92, Estim Creat Clear Calc 60.84, Est GFR ( MDRD) Af Amer 101, Est GFR (MDRD) Non-Af 83, BUN/Creatinine Ratio 13.0, Glucose 174 H, Calcium 7.2 L Current Medications Allopurinol (Zyloprim) 300 mg PO DAILY [facility] Last Admin: 12/17/17 09:10 Dose: 300 mg Sodium Chloride () 1,000 mls @ 125 mls/hr IV .Q8H [facility] Last Admin: 12/17/17 09:09 Dose: 125 mls/hr Piperacillin Sod/Tazobactam Sod (Zosyn) 3.375 gm in 50 mls @ 12.5 mls/hr IV Q8 [facility] Last Admin: 12/17/17 06:41 Dose: 12.5 mls/hr Insulin Human Lispro (Humalog Kwikpen (Bkc)) 0 unit SC ACHS DORA PRN Reason: Protocol Last Admin: 12/17/17 06:41 Dose: 1 u Levothyroxine Sodium (Synthroid) 100 mcg PO DAILY@0600 [facility] Last Admin: 12/17/17 06:41 Dose: 100 mcg Lisinopril (Zestril) 5 mg PO DAILY [facility] Last Admin: 12/17/17 09:10 Dose: 5 mg Magnesium Hydroxide (Milk Of Magnesia) 30 ml PO DAILY PRN PRN PRN Reason: Constipation Last Admin: 12/16/17 05:40 Dose: 30 ml Morphine Sulfate () 2 - 4 mg IV Q3H PRN PRN PRN Reason: SEVERE PAIN (6-10/10) Morphine Sulfate () 2 - 4 mg IV Q3H PRN PRN PRN Reason: SEVERE PAIN (6-10/10) Sodium Chloride () 5 - 30 ml IV UD PRN PRN Reason: SALINE FLUSH Tramadol HCl (Ultram) 50 mg PO Q8H PRN PRN PRN Reason: SEVERE PAIN (6-10/10) Medical Necessity - Tobacco Use Smoking Status: Never smoker Tobacco Use: Non-smoker Assessment/Plan All Active Problems Abdominal pain (Acute) Abnormal CT scan, gallbladder (Acute) Hyponatremia (Acute) Cholecystitis, acute with cholelithiasis (Acute) Dehydration (Acute) Contact with powered lawnmower as cause of accidental injury (Resolved) Fracture of second toe, right, closed (Resolved) Open fracture of right great toe (Resolved) Subungual hematoma of toe of right foot (Resolved) Traumatic right foot injury (Resolved) 82-year-old male presenting with a complaint of abdominal pain. He was found to have acute cholecystitis. 1. Acute cholecystitis s/p laparoscopic cholecystectomy- POD 1 * Stable. * White cell count does remain down. Blood cultures grew gram-negative rods. Speciation is pending. * IV Zosyn 3.375 g q. 8. * As well and has no complaints. * Is stable. Review of systems otherwise negative. * preliminary blood cultures growing gram negative rods * On IV Zosyn 3.375 g q. 8. * on IV morphine for pain * Discussed with Dr Schulz. Will Dc home on PO metronidazole and PO flagyl for a 10 day course. To follow up with Dr Schulz next Wednesday12/21/27 @ 3:30pm. * drain to be left in place. Only sponge bathing, and keep dressing clean and dry. * 2. Hypertension: controlled. on lisinopril 3. Hypothyroidism: stable. On synthroid 4. History of colonic polyps and diverticulosis: stable 5. Hyponatremia: resolving. Chronic. Na today is 134. WIll monitor 6. Diabetes mellitus: on ISS. accuchecks ACHS. 7. Constipation: will give dulcolax suppository 8. DVT prophylaxis: lovenox Disposition: dc home today. This note was generated with [employer] dictation software. It may contain incorrect words, spelling, and punctuation that were not noted in checking the note before signing. Code Visit Inpatient E&M: 25645 Subs Hosp L2
--- NOTE | 2017-12-17 10:14 | PCM.DC ---
- Discharge Diagnoses Current Active Problems: Current Active and Chronic Problems Abdominal pain (Acute) Abnormal CT scan, gallbladder (Acute) Hyponatremia (Acute) Constipation (Chronic) Cholecystitis, acute with cholelithiasis (Acute) Dehydration (Acute) Diverticulosis (Chronic) Colon polyps (Chronic) Reason(s) for Visit for Discharge Instructions: acute cholecystitis You will use the following diet at home:: Calorie/Carbohydrate Controlled (specify 1200, 1400, etc) Your food should be the consistency of: Regular Your liquids should be the consistency of: Regular/Thin Discharge Activity: Return to Normal Activity, May not drive while taking narcotic pain medications. Weight Bearing Status: Weight bearing as tolerated Call your doctor if your incision/area has: Continuous Slow Oozing, Increased Redness, Foul Smelling Discharge Call your doctor if you observe: Fever of 101 or Higher Cleanse incision/area with: Keep Dressing Clean & Dry Additional Dressing/Incision Instructions:: Leave dressings in place. May get wet in shower. Do not soak - no tub baths/swimming until further notice Instructions: ED Gallbladder Infec Conf Additional Instructions: Keep drain in. Only sponge bathing allowed. Drain to be removed by Dr Schulz in her office. Allergies/Adverse Reactions: Allergies cefaclor [From Ceclor] Allergy (Verified 12/15/17 17:48) Hives cephalexin monohydrate [From Keflex] Allergy (Verified 12/15/17 17:48) Hives codeine Allergy (Verified 12/15/17 17:48) Hives Medications to take at Discharge Allopurinol [Zyloprim] 300 mg PO DAILY 08/27/14 Levothyroxine [Synthroid] 100 mcg PO DAILY 08/27/14 Verapamil HCl [Verapamil ER] 240 mg PO DAILY 08/27/14 Cinnamon Bark [Cinnamon] 1,000 mg PO BID 03/15/17 Lisinopril [Zestril] 5 mg PO DAILY 03/15/17 Metformin HCl 1,000 mg PO BID 03/15/17 Multivit-Min/FA/Lycopen/Lutein [Centrum Silver Men Tablet] 1 each PO DAILY 03/15/17 Ondansetron [Zofran Odt] 4 mg PO Q8H PRN PRN #10 tablet 12/12/17 Acetaminophen [Tylenol] 650 mg PO 4X/DAY PRN PRN #20 cap 12/17/17 Ciprofloxacin [Cipro] 500 mg PO BID 10 Days #20 tab 12/17/17 Metronidazole 500 mg PO TID 10 Days #30 tab 12/17/17 The following prescriptions were given: Acetaminophen [Tylenol] 650 mg PO 4X/DAY PRN PRN #20 cap PRN Reason: Pain Ciprofloxacin [Cipro] 500 mg PO BID 10 Days #20 tab Metronidazole 500 mg PO TID 10 Days #30 tab Primary Care Physician: Charles Cutler MD [Primary Care Provider] - Please follow up with your Primary Care Physician in: one week Test Results: Test results from this visit will be discussed in further detail at your follow-up appointment, if applicable. Please Follow Up With: Loulou Schulz MD - call When: Wednesday12/21/17 @ 3:30pm Proposed Discharge Date: 12/17/17
--- NOTE | 2017-12-17 10:19 | PN_ITS ---
Patient Problems: Active and Suspected Problems Abdominal pain (Acute) Abnormal CT scan, gallbladder (Acute) Hyponatremia (Acute) Cholecystitis, acute with cholelithiasis (Acute) Dehydration (Acute) Vitals/I&O's: Vital Signs Temp Pulse Resp BP Pulse Ox 98.0 F 94 18 119/69 96 12/17/17 09:15 12/17/17 09:15 12/17/17 09:15 12/17/17 09:15 12/17/17 09:15 Oxygen Flow Rate (L/min) 2 Oxygen Delivery Method Room Air Weight: 180 lb Body Mass Index (BMI) 26.6 Finger Stick Blood Glucose 235 Intake and Output for Last 24 Hours 12/15/17 12/16/17 12/17/17 23:59 23:59 23:59 Intake Total 5352 / 5352 3217 / 3217 Output Total 880 / 880 1400 / 1400 Balance 4472 / 4472 1817 / 1817 Microbiology Past 72 Hours 12/15/17 23:50 Blood Culture (Wb) - Right Hand Blood Culture - Preliminary Laboratory Results 12/16/17 12:38: POC Glucose 235 H 12/16/17 16:00: POC Glucose 183 H 12/16/17 21:42: POC Glucose 239 H 12/17/17 06:39: POC Glucose 196 H 12/17/17 07:20: WBC 6.7, RBC 3.58 L, Hgb 11.3 L, Hct 31.5 L, MCV 88.0, MCH 31.6 , MCHC 35.9, RDW 13.7, RDW Differential 42.5, Plt Count 190, MPV 9.7, Immature Gran % (Auto) 0.400, Neut % (Auto) 78.0 H, Lymph % (Auto) 7.6 L, [place] % (Auto) 12.4 H, Eos % (Auto) 1.6, Baso % (Auto) 0.0, Absolute Neuts (auto) 5.2, Absolute Lymphs (auto) 0.51 L, Total Counted Not Reportable, Hypochromasia 1+ 12/17/17 07:20: Sodium 134 L, Potassium 4.0, Chloride 103, Carbon Dioxide 22.0, Anion Gap 9, BUN 12, Creatinine 0.92, Estim Creat Clear Calc 60.84, Est GFR ( MDRD) Af Amer 101, Est GFR (MDRD) Non-Af 83, BUN/Creatinine Ratio 13.0, Glucose 174 H, Calcium 7.2 L Current Medications Allopurinol (Zyloprim) 300 mg PO DAILY [facility] Last Admin: 12/17/17 09:10 Dose: 300 mg Sodium Chloride () 1,000 mls @ 125 mls/hr IV .Q8H [facility] Last Admin: 12/17/17 09:09 Dose: 125 mls/hr Piperacillin Sod/Tazobactam Sod (Zosyn) 3.375 gm in 50 mls @ 12.5 mls/hr IV Q8 [facility] Last Admin: 12/17/17 06:41 Dose: 12.5 mls/hr Insulin Human Lispro (Humalog Kwikpen (Bkc)) 0 unit SC ACHS [facility] PRN Reason: Protocol Last Admin: 12/17/17 06:41 Dose: 1 u Levothyroxine Sodium (Synthroid) 100 mcg PO DAILY@0600 [facility] Last Admin: 12/17/17 06:41 Dose: 100 mcg Lisinopril (Zestril) 5 mg PO DAILY [facility] Last Admin: 12/17/17 09:10 Dose: 5 mg Magnesium Hydroxide (Milk Of Magnesia) 30 ml PO DAILY PRN PRN PRN Reason: Constipation Last Admin: 12/16/17 05:40 Dose: 30 ml Morphine Sulfate () 2 - 4 mg IV Q3H PRN PRN PRN Reason: SEVERE PAIN (6-10/10) Morphine Sulfate () 2 - 4 mg IV Q3H PRN PRN PRN Reason: SEVERE PAIN (6-10/10) Sodium Chloride () 5 - 30 ml IV UD PRN PRN Reason: SALINE FLUSH Tramadol HCl (Ultram) 50 mg PO Q8H PRN PRN PRN Reason: SEVERE PAIN (6-10/10) Medical Necessity - Tobacco Use Smoking Status: Never smoker Tobacco Use: Non-smoker Assessment/Plan All Active Problems Abdominal pain (Acute) Abnormal CT scan, gallbladder (Acute) Hyponatremia (Acute) Cholecystitis, acute with cholelithiasis (Acute) Dehydration (Acute) Contact with powered lawnmower as cause of accidental injury (Resolved) Fracture of second toe, right, closed (Resolved) Open fracture of right great toe (Resolved) Subungual hematoma of toe of right foot (Resolved) Traumatic right foot injury (Resolved)
--- NOTE | 2017-12-17 10:19 | DCINST_ITS ---
- Discharge Diagnoses Current Active Problems: Current Active and Chronic Problems Abdominal pain (Acute) Abnormal CT scan, gallbladder (Acute) Hyponatremia (Acute) Constipation (Chronic) Cholecystitis, acute with cholelithiasis (Acute) Dehydration (Acute) Diverticulosis (Chronic) Colon polyps (Chronic) Reason(s) for Visit for Discharge Instructions: acute cholecystitis You will use the following diet at home:: Calorie/Carbohydrate Controlled ( specify 1200, 1400, etc) Your food should be the consistency of: Regular Your liquids should be the consistency of: Regular/Thin Discharge Activity: Return to Normal Activity, May not drive while taking narcotic pain medications. Weight Bearing Status: Weight bearing as tolerated Call your doctor if your incision/area has: Continuous Slow Oozing, Increased Redness, Foul Smelling Discharge Call your doctor if you observe: Fever of 101 or Higher Cleanse incision/area with: Keep Dressing Clean & Dry Additional Dressing/Incision Instructions:: Leave dressings in place. May get wet in shower. Do not soak - no tub baths/swimming until further notice Instructions: ED Gallbladder Infec Conf Additional Instructions: Keep drain in. Only sponge bathing allowed. Drain to be removed by Dr Schuzl in her office. Allergies/Adverse Reactions: Allergies cefaclor [From Ceclor] Allergy (Verified 12/15/17 17:48) Hives cephalexin monohydrate [From Keflex] Allergy (Verified 12/15/17 17:48) Hives codeine Allergy (Verified 12/15/17 17:48) Hives Medications to take at Discharge Allopurinol [Zyloprim] 300 mg PO DAILY 08/27/14 Levothyroxine [Synthroid] 100 mcg PO DAILY 08/27/14 Verapamil HCl [Verapamil ER] 240 mg PO DAILY 08/27/14 Cinnamon Bark [Cinnamon] 1,000 mg PO BID 03/15/17 Lisinopril [Zestril] 5 mg PO DAILY 03/15/17 Metformin HCl 1,000 mg PO BID 03/15/17 Multivit-Min/FA/Lycopen/Lutein [Centrum Silver Men Tablet] 1 each PO DAILY 03/15 Ondansetron [Zofran Odt] 4 mg PO Q8H PRN PRN #10 tablet 12/12/17 Acetaminophen [Tylenol] 650 mg PO 4X/DAY PRN PRN #20 cap 12/17/17 Ciprofloxacin [Cipro] 500 mg PO BID 10 Days #20 tab 12/17/17 Metronidazole 500 mg PO TID 10 Days #30 tab 12/17/17 The following prescriptions were given: Acetaminophen [Tylenol] 650 mg PO 4X/DAY PRN PRN #20 cap PRN Reason: Pain Ciprofloxacin [Cipro] 500 mg PO BID 10 Days #20 tab Metronidazole 500 mg PO TID 10 Days #30 tab Primary Care Physician: Charles Cutler MD [Primary Care Provider] - Please follow up with your Primary Care Physician in: one week Test Results: Test results from this visit will be discussed in further detail at your follow- up appointment, if applicable. Please Follow Up With: Loulou Schulz MD - call When: Wednesday12/21/17 @ 3:30pm Proposed Discharge Date: 12/17/17
[2017-12-17 11:25] LABS: Bedside Glucose 270 mg/dL (70-110)
--- NOTE | 2017-12-17 11:30 | CASEMGMT ---
CRISTOFER MEDLEY Face to Face with patient for initial transition planning/care coordination assessment. CRISTOFER MEDLEY introduced self and role at [facility]. Patient sitting in chair, alert and oriented. Patient willing to participate in assessment and is able to answer all questions appropriately. Care providers, pharmacy, and demographics verified. Patient lives in 2 story home with bed and bath on the first floor. Patient denies need for DME at this time. Patient states that he provides care for his . Patients has children that live close by and will help provide care for patient's . Patient wishes to discharge home, denies need for home health at this time. Patient states he has no further needs or concerns at this time. CM to follow for discharge planning needs that may arise. Disposition Plan: Patient to discharge home with family support and follow-up plans in place.
--- NOTE | 2017-12-17 13:33 | DS.PCM_ITS ---
Discharge Date and Diagnosis - Problem List Patient Problems: Active and Suspected Problems Abdominal pain (Acute) Abnormal CT scan, gallbladder (Acute) Hyponatremia (Acute) Cholecystitis, acute with cholelithiasis (Acute) Dehydration (Acute) Date of Admission: 12/15/17 Date of Discharge: 12/17/17 - Primary Discharge Diagnosis Active and Suspected Problems Abdominal pain (Acute) Abnormal CT scan, gallbladder (Acute) Hyponatremia (Acute) Cholecystitis, acute with cholelithiasis (Acute) Dehydration (Acute) - Secondary Discharge Diagnosis Chronic Problems Constipation (Chronic) Diverticulosis (Chronic) Colon polyps (Chronic) Diabetes mellitus type 2 in nonobese (Chronic) Hospital Course and Treatment Imaging Results: Laboratory Tests 12/15/17 12/15/17 12/15/17 18:00 18:00 18:00 WBC 7.5 RBC 4.19 L Hgb 13.0 Hct 37.6 L MCV 89.7 MCH 31.0 MCHC 34.6 RDW 13.6 RDW Differential 44.9 H Plt Count 180 MPV 9.9 Immature Gran % (Auto) 0.100 Neut % (Auto) 91.4 H Lymph % (Auto) 2.4 L [place] % (Auto) 5.8 Eos % (Auto) 0.3 Baso % (Auto) 0.0 Absolute Neuts (auto) 6.8 Absolute Lymphs (auto) 0.18 L Total Counted Not Reportable Differential Comment SCANNED Platelet Estimate ADEQUATE Hypochromasia PT 13.7 INR 1.1 APTT 33.7 Sodium 127 L Potassium 4.3 Chloride 90 L Carbon Dioxide 25.0 Anion Gap 12 BUN 25 H Creatinine 1.11 Estim Creat Clear Calc 50.42 Est GFR (MDRD) Af Amer 81 Est GFR (MDRD) Non-Af 67 BUN/Creatinine Ratio 22.5 H Glucose 223 H Hemoglobin A1c Calcium 9.0 Magnesium Total Bilirubin 1.10 H AST 13 L ALT 17 Alkaline Phosphatase 117 Total Protein 7.2 Albumin 2.8 L Globulin 4.4 H Albumin/Globulin Ratio 0.6 L Lipase Urine Color Urine Clarity Urine pH Ur Specific [place] Urine Protein Urine Glucose (UA) Urine Ketones Urine Occult Blood Urine Nitrite Urine Bilirubin Urine Urobilinogen Ur Leukocyte Esterase Urine RBC Urine WBC Ur Squamous Epith Cells Urine Bacteria Urine Mucus Ur Random Sodium Urine Creatinine POC Glucose 12/15/17 12/15/17 12/15/17 18:00 18:00 18:00 WBC RBC Hgb Hct MCV MCH MCHC RDW RDW Differential Plt Count MPV Immature Gran % (Auto) Neut % (Auto) Lymph % (Auto) [place] % (Auto) Eos % (Auto) Baso % (Auto) Absolute Neuts (auto) Absolute Lymphs (auto) Total Counted Differential Comment Platelet Estimate Hypochromasia PT INR APTT Sodium Potassium Chloride Carbon Dioxide Anion Gap BUN Creatinine Estim Creat Clear Calc Est GFR (MDRD) Af Amer Est GFR (MDRD) Non-Af BUN/Creatinine Ratio Glucose Hemoglobin A1c 6.6 H Calcium Magnesium 1.5 L Total Bilirubin AST ALT Alkaline Phosphatase Total Protein Albumin Globulin Albumin/Globulin Ratio Lipase 204 Urine Color Urine Clarity Urine pH Ur Specific [place] Urine Protein Urine Glucose (UA) Urine Ketones Urine Occult Blood Urine Nitrite Urine Bilirubin Urine Urobilinogen Ur Leukocyte Esterase Urine RBC Urine WBC Ur Squamous Epith Cells Urine Bacteria Urine Mucus Ur Random Sodium Urine Creatinine POC Glucose 12/15/17 12/15/17 12/15/17 18:45 18:45 18:45 WBC RBC Hgb Hct MCV MCH MCHC RDW RDW Differential Plt Count MPV Immature Gran % (Auto) Neut % (Auto) Lymph % (Auto) [place] % (Auto) Eos % (Auto) Baso % (Auto) Absolute Neuts (auto) Absolute Lymphs (auto) Total Counted Differential Comment Platelet Estimate Hypochromasia PT INR APTT Sodium Potassium Chloride Carbon Dioxide Anion Gap BUN Creatinine Estim Creat Clear Calc Est GFR (MDRD) Af Amer Est GFR (MDRD) Non-Af BUN/Creatinine Ratio Glucose Hemoglobin A1c Calcium Magnesium Total Bilirubin AST ALT Alkaline Phosphatase Total Protein Albumin Globulin Albumin/Globulin Ratio Lipase Urine Color Yellow Urine Clarity Clear Urine pH 6.0 Ur Specific [place] 1.010 Urine Protein 30 H Urine Glucose (UA) 50 H Urine Ketones Negative Urine Occult Blood 25 H Urine Nitrite Negative Urine Bilirubin Negative Urine Urobilinogen Normal Ur Leukocyte Esterase Negative Urine RBC 0-5 SEEN Urine WBC 0 SEEN Ur Squamous Epith Cells 0 SEEN Urine Bacteria 0 SEEN Urine Mucus 0 SEEN Ur Random Sodium 12 Urine Creatinine 112.00 POC Glucose 12/15/17 12/16/17 12/16/17 23:53 05:44 05:44 WBC 6.9 RBC 3.90 L Hgb 12.2 L Hct 35.2 L MCV 90.3 MCH 31.3 MCHC 34.7 RDW 13.8 RDW Differential 45.3 H Plt Count 161 MPV 11.0 Immature Gran % (Auto) 0.000 Neut % (Auto) 91.5 H Lymph % (Auto) 4.6 L [place] % (Auto) 3.3 Eos % (Auto) 0.6 Baso % (Auto) 0.0 Absolute Neuts (auto) 6.4 Absolute Lymphs (auto) 0.32 L Total Counted Not Reportable Differential Comment Platelet Estimate Hypochromasia PT INR APTT Sodium 131 L Potassium 4.8 Chloride 98 Carbon Dioxide 23.0 Anion Gap 10 BUN 20 H Creatinine 0.90 Estim Creat Clear Calc 62.19 Est GFR (MDRD) Af Amer 103 Est GFR (MDRD) Non-Af 85 BUN/Creatinine Ratio 22.1 H Glucose 178 H Hemoglobin A1c Calcium 8.2 L Magnesium Total Bilirubin 1.30 H AST 30 ALT 18 Alkaline Phosphatase 104 Total Protein 6.3 L Albumin 2.3 L Globulin 4.0 Albumin/Globulin Ratio 0.6 L Lipase Urine Color Urine Clarity Urine pH Ur Specific [place] Urine Protein Urine Glucose (UA) Urine Ketones Urine Occult Blood Urine Nitrite Urine Bilirubin Urine Urobilinogen Ur Leukocyte Esterase Urine RBC Urine WBC Ur Squamous Epith Cells Urine Bacteria Urine Mucus Ur Random Sodium Urine Creatinine POC Glucose 251 H 12/16/17 12/16/17 12/16/17 06:37 12:38 16:00 WBC RBC Hgb Hct MCV MCH MCHC RDW RDW Differential Plt Count MPV Immature Gran % (Auto) Neut % (Auto) Lymph % (Auto) [place] % (Auto) Eos % (Auto) Baso % (Auto) Absolute Neuts (auto) Absolute Lymphs (auto) Total Counted Differential Comment Platelet Estimate Hypochromasia PT INR APTT Sodium Potassium Chloride Carbon Dioxide Anion Gap BUN Creatinine Estim Creat Clear Calc Est GFR (MDRD) Af Amer Est GFR (MDRD) Non-Af BUN/Creatinine Ratio Glucose Hemoglobin A1c Calcium Magnesium Total Bilirubin AST ALT Alkaline Phosphatase Total Protein Albumin Globulin Albumin/Globulin Ratio Lipase Urine Color Urine Clarity Urine pH Ur Specific [place] Urine Protein Urine Glucose (UA) Urine Ketones Urine Occult Blood Urine Nitrite Urine Bilirubin Urine Urobilinogen Ur Leukocyte Esterase Urine RBC Urine WBC Ur Squamous Epith Cells Urine Bacteria Urine Mucus Ur Random Sodium Urine Creatinine POC Glucose 222 H 235 H 183 H 12/16/17 12/17/17 12/17/17 21:42 06:39 07:20 WBC 6.7 RBC 3.58 L Hgb 11.3 L Hct 31.5 L MCV 88.0 MCH 31.6 MCHC 35.9 RDW 13.7 RDW Differential 42.5 Plt Count 190 MPV 9.7 Immature Gran % (Auto) 0.400 Neut % (Auto) 78.0 H Lymph % (Auto) 7.6 L [place] % (Auto) 12.4 H Eos % (Auto) 1.6 Baso % (Auto) 0.0 Absolute Neuts (auto) 5.2 Absolute Lymphs (auto) 0.51 L Total Counted Not Reportable Differential Comment Platelet Estimate Hypochromasia 1+ PT INR APTT Sodium Potassium Chloride Carbon Dioxide Anion Gap BUN Creatinine Estim Creat Clear Calc Est GFR (MDRD) Af Amer Est GFR (MDRD) Non-Af BUN/Creatinine Ratio Glucose Hemoglobin A1c Calcium Magnesium Total Bilirubin AST ALT Alkaline Phosphatase Total Protein Albumin Globulin Albumin/Globulin Ratio Lipase Urine Color Urine Clarity Urine pH Ur Specific [place] Urine Protein Urine Glucose (UA) Urine Ketones Urine Occult Blood Urine Nitrite Urine Bilirubin Urine Urobilinogen Ur Leukocyte Esterase Urine RBC Urine WBC Ur Squamous Epith Cells Urine Bacteria Urine Mucus Ur Random Sodium Urine Creatinine POC Glucose 239 H 196 H 12/17/17 12/17/17 07:20 11:13 WBC RBC Hgb Hct MCV MCH MCHC RDW RDW Differential Plt Count MPV Immature Gran % (Auto) Neut % (Auto) Lymph % (Auto) [place] % (Auto) Eos % (Auto) Baso % (Auto) Absolute Neuts (auto) Absolute Lymphs (auto) Total Counted Differential Comment Platelet Estimate Hypochromasia PT INR APTT Sodium 134 L Potassium 4.0 Chloride 103 Carbon Dioxide 22.0 Anion Gap 9 BUN 12 Creatinine 0.92 Estim Creat Clear Calc 60.84 Est GFR (MDRD) Af Amer 101 Est GFR (MDRD) Non-Af 83 BUN/Creatinine Ratio 13.0 Glucose 174 H Hemoglobin A1c Calcium 7.2 L Magnesium Total Bilirubin AST ALT Alkaline Phosphatase Total Protein Albumin Globulin Albumin/Globulin Ratio Lipase Urine Color Urine Clarity Urine pH Ur Specific [place] Urine Protein Urine Glucose (UA) Urine Ketones Urine Occult Blood Urine Nitrite Urine Bilirubin Urine Urobilinogen Ur Leukocyte Esterase Urine RBC Urine WBC Ur Squamous Epith Cells Urine Bacteria Urine Mucus Ur Random Sodium Urine Creatinine POC Glucose 270 H Diagnostic Data Abdomen/Pelvis CT 12/15/17 17:56 IMPRESSION: Cholelithiasis and probably acute cholecystitis. Large volume thick walled gallbladder with pericholecystic edema and numerous calcified stones. Nondistended intrahepatic and common bile duct. Unremarkable pancreas. Thickening of the cephalad wall of the hepatic flexure of the colon juxtapose the gallbladder inflammation and most likely secondary to the gallbladder inflammation with no other acute bowel related findings. Diverticulosis without evidence of acute diverticulitis. A normal appendix is identified. Stigmata of old granulomatous disease. Atherosclerotic changes of the thoracic aorta. Minimal fatty umbilical hernia. Small fatty left inguinal hernia. Posterior atelectatic versus chronic change, right greater than left. Electronically Signed: Marsha Dueñas MD at 20:11 EDT , Service support , Operations: cholecystecomy - laparoscopic, - - partial amputation of the right hallux Summary of Care Provided: Is an 82-year-old male with hypertension, gout, hypothyroidism, colonic polyps, diverticulosis and type 2 diabetes mellitus. He was admitted to the ED on 2017 with complaints of chills, right upper quadrant pain and poor appetite for the preceding 5 days. He had been seen in the ED on 12/12/2017 with a complaint of nausea and vomiting and was treated as gastroenteritis. Abdominal pain returned with assisted chills and came back to the ED. CAT scan done in the ED was positive large firm gallbladder with multiple calcifications present and thickened wall with pericholecystic fluid indicating acute cholecystitis with cholelithiasis. White cell count was not elevated at 7.5. He was admitted and started on IV Zosyn for acute cholecystitis and had arthroscopic cholecystectomy in 12/16/17. Negative rods with speciation pending still at time of discharge. Received 3 days of IV Zosyn and remained stable. He was discharged home on postop day 1 on p.o. ciprofloxacin and p.o. metronidazole for 10 day course. He is to follow-up with Dr. Schulz at the surgeon on Wednesday, at 3:30 PM in our office he is also to follow-up with his primary care doctor in 1 week. ] Discharge Diet: No Restrictions, 2000 mg Sodium Diet Discharge Activity: Return to Normal Activity, May not drive while taking narcotic pain medications. Weight Bearing Status: Weight bearing as tolerated Call your doctor if your incision/area has: Continuous Slow Oozing, Increased Redness, Foul Smelling Discharge Call your doctor if you observe: Fever of 101 or Higher Cleanse incision/area with: Keep Dressing Clean & Dry Additional Dressing/Incision Instructions:: Leave dressings in place. May get wet in shower. Do not soak - no tub baths/swimming until further notice Home Medications: Medications to take at Discharge Allopurinol [Zyloprim] 300 mg PO DAILY 08/27/14 Levothyroxine [Synthroid] 100 mcg PO DAILY 08/27/14 Verapamil HCl [Verapamil ER] 240 mg PO DAILY 08/27/14 Cinnamon Bark [Cinnamon] 1,000 mg PO BID 03/15/17 Lisinopril [Zestril] 5 mg PO DAILY 03/15/17 Metformin HCl 1,000 mg PO BID 03/15/17 Multivit-Min/FA/Lycopen/Lutein [Centrum Silver Men Tablet] 1 each PO DAILY 03/15 Ondansetron [Zofran Odt] 4 mg PO Q8H PRN PRN #10 tablet 12/12/17 Acetaminophen [Tylenol] 650 mg PO 4X/DAY PRN PRN #20 cap 12/17/17 Ciprofloxacin [Cipro] 500 mg PO BID 10 Days #20 tab 12/17/17 Metronidazole 500 mg PO TID 10 Days #30 tab 12/17/17 Following Prescrptions Were Given to Patient: Acetaminophen [Tylenol] 650 mg PO 4X/DAY PRN PRN #20 cap PRN Reason: Pain Ciprofloxacin [Cipro] 500 mg PO BID 10 Days #20 tab Metronidazole 500 mg PO TID 10 Days #30 tab Primary Care Physician: Charles Cutler MD [Primary Care Provider] - Please follow up with your Primary Care Physician in: one week Please Follow Up With: Loulou Schulz MD - call When: Wednesday12/21/17 @ 3:30pm Patient Instructions: ED Gallbladder Infec Conf Additional Instructions: Please note follow up with Dr Schulz is 12/20/17, not 12/21/17 Disposition: Home Minutes spent on discharge:: 40 Patient Condition:: Good Medical Necessity - Tobacco Use Smoking Status: Never smoker Tobacco Use: Non-smoker Meaningful Use Info Meaningful Use Diagnoses (Choose all that apply): None applicable Code Visit Inpatient E&M: 49612 Disch Hosp
--- NOTE | 2017-12-21 16:44 | CASEMGMT ---
CRISTOFER MEDLEY Discharge Follow-up Phone Call: HIGINIO: 9 Strata: 3 Call Date: 12/21/17 Discharge Date: 12/17/17 Time of Call: 1645 Duration: 1 min Admitting Diagnosis: Acute Cholecystitis CRISTOFER MEDLEY attempted to complete follow-up phone call after recent hospitalization. No answer, voice message left with return contact information.
== END 2017-12-17 13:22 | disposition home or self-care (01) | DRG 418 ==
LOC: ED 20:55 → MS3 22:22
PROVIDERS: Surgery; Admitting Provider Internal Medicine; Emergency Provider Emergency Medicine; Family Provider Internal Medicine; PCP Internal Medicine; Visit Provider Student in an Organized Health Care Education/Training Program
PROC: 0FT44ZZ Resection of Gallbladder, Percutaneous Endoscopic Approach (ICD-10-PCS; CPT 47610; principal; 2017-12-16 08:30)
DX: K80.12 Calculus of gallbladder with acute and chronic cholecystitis without obstruction (principal); E87.1 Hypo-osmolality and hyponatremia; E03.9 Hypothyroidism, unspecified; K59.00 Constipation, unspecified; Z79.84 Long term (current) use of oral hypoglycemic drugs; Z86.010 Personal history of colon polyps; I10 Essential (primary) hypertension; M10.9 Gout, unspecified; E86.0 Dehydration; K57.90 Diverticulosis of intestine, part unspecified, without perforation or abscess without bleeding; E11.9 Type 2 diabetes mellitus without complications; Z79.899 Other long term (current) drug therapy
CPT/HCPCS: 36415; 74177; 80048; 80053; 81001; 82570; 82962; 83036; 83690; 83735; 84300; 85025; 85610; 85730; 87040; 87077; 87186; 88304; 93005; 96361; 96374; 99283; 99284; J7030; J7050; Q9967; A4216; J2405

== ENCOUNTER 2020-08-22 12:00 | Outpatient (RCR) | payer MEDICARE, SELFPAY ==
[2017-12-16 08:14] VITALS: BMI 26.6
[2020-08-22] MEDS: COVID-19 VACC, MRNA(PFIZER)/PF 30 MCG/0.3 ML SYRINGE IM (10:10)
[2020-09-12] MEDS: COVID-19 VACC, MRNA(PFIZER)/PF 30 MCG/0.3 ML SYRINGE IM (10:05)
== END 2020-11-19 23:59 ==
LOC: IMMUN 12:00
PROVIDERS: PCP Internal Medicine; Visit Provider Family Medicine
DX: Z23 Encounter for immunization (principal)
CPT/HCPCS: 0001A; 0002A; 91300